=== PATIENT | male | born 1980 | race Caucasian/White ===

== ENCOUNTER 2018-03-03 13:42 | Inpatient (IN) | payer OTHER ==
[2018-03-03] MEDS: SOD CHLORIDE 0.9% 1,000 ML IV (14:08)
[2018-03-03] MEDS ORDERED: NACL 0.9% 3 ML SYG IV (14:30)
[2018-03-03] MEDS ORDERED: HYDROCODONE/APAP (5/325) TAB PO (14:30)
[2018-03-03] MEDS: CEFTRIAXONE 1 GM/50 ML (PMX) 50 ML IVPB (15:28)
[2018-03-03 15:31] LABS: ADD MAN DIFF? NO
[2018-03-03 15:34] LABS: BASOPHILS % 0.3 % (0.0-2.0); EOSINOPHILS % 0.3 % (0.0-7.0); HEMATOCRIT 30.6 % (42.0-52.0); HEMOGLOBIN 9.3 g/dl (14.0-18.0); LYMPHOCYTES % 11.5 % (15.0-51.0); MEAN CORPUSCULAR HEMOGLOBIN 24.4 pg (29.0-33.0); MEAN CORPUSCULAR HGB CONC 30.4 g/dl (32.0-37.0); MEAN CORPUSCULAR VOLUME 80.3 fl (82.0-101.0); MEAN PLATELET VOLUME 9.4 fl (7.4-10.4); MONOCYTE # 0.7 10^3/ul (0.3-0.9); MONOCYTES % 7.5 % (0.0-11.0); NEUTROPHIL # 7.1 10^3/ul (1.6-7.5); NEUTROPHILS % 79.8 % (39.0-77.0); PLATELET COUNT 309 10^3/UL (140-415); RED BLOOD COUNT 3.81 10^6/ul (4.70-6.10); RED CELL DISTRIBUTION WIDTH 15.8 % (11.5-14.5)
[2018-03-03 15:34] LABS: WHITE BLOOD COUNT 8.9 10^3/ul (4.8-10.8)
[2018-03-03 15:54] LABS: ANION GAP 9 (5-13); BLOOD UREA NITROGEN 26 mg/dl (7-20); CALCIUM 8.8 mg/dl (8.4-10.2); CARBON DIOXIDE 22 mmol/L (21-31); CHLORIDE 107 mmol/L (97-110); CREATININE 1.64 mg/dl (0.61-1.24); Estimated GFR 48 mL/min (>60); GLUCOSE 99 mg/dl (70-220); POTASSIUM 4.8 mmol/L (3.5-5.1); SODIUM 138 mmol/L (135-144)
[2018-03-03] MEDS: AMLODIPINE 10 MG TAB PO (16:13)
[2018-03-03 17:55] LABS: ADD UMIC YES; UR AMORPHOUS CRYSTAL MODERATE /HPF (NONE SEEN); UR ASCORBIC ACID NEGATIVE (NEGATIVE); UR BACTERIA FEW /HPF (NONE SEEN); UR BILIRUBIN (Dip) NEGATIVE (NEGATIVE); UR BLOOD (Dip) 2+ mg/dL (NEGATIVE); UR CLARITY TURBID (CLEAR); UR COLOR YELLOW (YELLOW); UR GLUCOSE (Dip) NEGATIVE (NEGATIVE); UR KETONES (Dip) NEGATIVE (NEGATIVE); UR LEUKOCYTE ESTERASE (Dip) NEGATIVE Leu/ul (NEGATIVE); UR MUCUS MODERATE /HPF (NONE SEEN); UR NITRITE (Dip) NEGATIVE (NEGATIVE); UR RBC 22 /HPF (0-5); UR SPECIFIC GRAVITY (Dip) 1.014 (1.003-1.030); UR SQUAMOUS EPITHELIAL CELL FEW /HPF (FEW); UR TOTAL PROTEIN (Dip) 2+ mg/dl (NEGATIVE); UR URIC ACID CRYSTAL MODERATE /HPF (NONE SEEN); UR UROBILINOGEN (Dip) NEGATIVE (NEGATIVE); UR WBC 8 /HPF (0-5)
[2018-03-03] MEDS: ONDANSETRON 4 MG INJ IV (21:46)
[2018-03-04] MEDS: SOD CHLORIDE 0.9% 1,000 ML IV ×3 (04:26→23:38)
[2018-03-04 05:09] LABS: ADD MAN DIFF? NO
[2018-03-04 05:21] LABS: WHITE BLOOD COUNT 11.1 10^3/ul (4.8-10.8)
[2018-03-04 05:21] LABS: BASOPHIL # 0.1 10^3/ul (0.0-0.1); BASOPHILS % 0.5 % (0.0-2.0); EOSINOPHILS # 0.1 10^3/ul (0.0-0.5); EOSINOPHILS % 0.5 % (0.0-7.0); HEMOGLOBIN 10.5 g/dl (14.0-18.0); LYMPHOCYTES # 1.6 10^3/ul (0.8-2.9); LYMPHOCYTES % 14.6 % (15.0-51.0); MEAN CORPUSCULAR VOLUME 80.1 fl (82.0-101.0); MEAN PLATELET VOLUME 9.5 fl (7.4-10.4); MONOCYTE # 0.8 10^3/ul (0.3-0.9); MONOCYTES % 6.9 % (0.0-11.0); NEUTROPHIL # 8.5 10^3/ul (1.6-7.5); NEUTROPHILS % 76.8 % (39.0-77.0); PLATELET COUNT 401 10^3/UL (140-415); RED BLOOD COUNT 4.37 10^6/ul (4.70-6.10); RED CELL DISTRIBUTION WIDTH 15.8 % (11.5-14.5)
[2018-03-04 05:27] LABS: HEMOGLOBIN A1C 5.7 % (0-5.9)
[2018-03-04 05:34] LABS: PHOSPHORUS 4.8 mg/dl (2.5-4.9)
[2018-03-04 05:34] LABS: MAGNESIUM 2.1 mg/dl (1.7-2.5)
[2018-03-04 05:40] LABS: ANION GAP 13 (5-13); BLOOD UREA NITROGEN 21 mg/dl (7-20); CARBON DIOXIDE 20 mmol/L (21-31); CHLORIDE 106 mmol/L (97-110); CREATININE 1.66 mg/dl (0.61-1.24); Estimated GFR 47 mL/min (>60); GLUCOSE 106 mg/dl (70-220); SODIUM 139 mmol/L (135-144)
[2018-03-04 05:42] LABS: POTASSIUM 4.3 mmol/L (3.5-5.1)
[2018-03-04] MEDS: PANTOPRAZOLE (EC) 40 MG TAB PO (06:15)
[2018-03-04] MEDS: AMLODIPINE 10 MG TAB PO (08:35)
[2018-03-04] MEDS: ACETAMINOPHEN 325 MG TAB PO (14:25)
[2018-03-04] MEDS: CEFTRIAXONE 1 GM/50 ML (PMX) 50 ML IVPB (14:25)
[2018-03-04] MEDS: ONDANSETRON 4 MG INJ IV (17:06)
[2018-03-05 05:20] LABS: ADD MAN DIFF? NO
[2018-03-05 05:30] LABS: BASOPHILS % 0.5 % (0.0-2.0); EOSINOPHILS % 0.5 % (0.0-7.0); HEMATOCRIT 30.5 % (42.0-52.0); HEMOGLOBIN 9.2 g/dl (14.0-18.0); LYMPHOCYTES % 13.1 % (15.0-51.0); MEAN CORPUSCULAR HEMOGLOBIN 24.1 pg (29.0-33.0); MEAN CORPUSCULAR HGB CONC 30.2 g/dl (32.0-37.0); MEAN CORPUSCULAR VOLUME 80.1 fl (82.0-101.0); MEAN PLATELET VOLUME 9.5 fl (7.4-10.4); MONOCYTE # 0.6 10^3/ul (0.3-0.9); MONOCYTES % 7.8 % (0.0-11.0); NEUTROPHIL # 6.2 10^3/ul (1.6-7.5); NEUTROPHILS % 77.6 % (39.0-77.0); PLATELET COUNT 324 10^3/UL (140-415); RED BLOOD COUNT 3.81 10^6/ul (4.70-6.10); RED CELL DISTRIBUTION WIDTH 15.8 % (11.5-14.5)
[2018-03-05 05:45] LABS: ANION GAP 7 (5-13); BLOOD UREA NITROGEN 17 mg/dl (7-20); CALCIUM 8.8 mg/dl (8.4-10.2); CARBON DIOXIDE 23 mmol/L (21-31); CHLORIDE 108 mmol/L (97-110); CREATININE 1.71 mg/dl (0.61-1.24); Estimated GFR 45 mL/min (>60); GLUCOSE 102 mg/dl (70-220); POTASSIUM 4.6 mmol/L (3.5-5.1); SODIUM 138 mmol/L (135-144)
[2018-03-05] MEDS: PANTOPRAZOLE (EC) 40 MG TAB PO (05:54)
[2018-03-05 05:58] LABS: MAGNESIUM 2.1 mg/dl (1.7-2.5)
[2018-03-05 05:58] LABS: PHOSPHORUS 4.6 mg/dl (2.5-4.9)
[2018-03-05] MEDS: AMLODIPINE 10 MG TAB PO (09:16)
[2018-03-05] MEDS: SOD CHLORIDE 0.9% 1,000 ML IV (14:03)
[2018-03-05] MEDS: CEFTRIAXONE 1 GM/50 ML (PMX) 50 ML IVPB (16:17)
[2018-03-06] MEDS: PANTOPRAZOLE (EC) 40 MG TAB PO (05:40)
[2018-03-06] MEDS: SOD CHLORIDE 0.9% 1,000 ML IV ×2 (05:43→15:36)
[2018-03-06] MEDS: ONDANSETRON 4 MG INJ IV (06:57)
[2018-03-06] MEDS: AMLODIPINE 10 MG TAB PO (08:28)
[2018-03-06] MEDS: CEFTRIAXONE 1 GM/50 ML (PMX) 50 ML IVPB (15:36)
[2018-03-07] MEDS: SOD CHLORIDE 0.9% 1,000 ML IV ×2 (03:56→09:34)
[2018-03-07 05:08] LABS: ADD MAN DIFF? NO
[2018-03-07 05:11] LABS: WHITE BLOOD COUNT 8.7 10^3/ul (4.8-10.8)
[2018-03-07 05:11] LABS: BASOPHIL # 0.1 10^3/ul (0.0-0.1); BASOPHILS % 0.8 % (0.0-2.0); EOSINOPHILS % 0.5 % (0.0-7.0); HEMATOCRIT 32.3 % (42.0-52.0); HEMOGLOBIN 9.7 g/dl (14.0-18.0); LYMPHOCYTES # 1.3 10^3/ul (0.8-2.9); LYMPHOCYTES % 14.8 % (15.0-51.0); MEAN CORPUSCULAR HEMOGLOBIN 24.2 pg (29.0-33.0); MEAN CORPUSCULAR VOLUME 80.5 fl (82.0-101.0); MEAN PLATELET VOLUME 9.1 fl (7.4-10.4); MONOCYTE # 0.7 10^3/ul (0.3-0.9); MONOCYTES % 7.4 % (0.0-11.0); NEUTROPHIL # 6.7 10^3/ul (1.6-7.5); PLATELET COUNT 362 10^3/UL (140-415); RED BLOOD COUNT 4.01 10^6/ul (4.70-6.10)
[2018-03-07] MEDS: PANTOPRAZOLE (EC) 40 MG TAB PO (05:18)
[2018-03-07 05:34] LABS: ANION GAP 15 (5-13); BLOOD UREA NITROGEN 15 mg/dl (7-20); CALCIUM 8.5 mg/dl (8.4-10.2); CARBON DIOXIDE 21 mmol/L (21-31); CHLORIDE 106 mmol/L (97-110); CREATININE 1.54 mg/dl (0.61-1.24); Estimated GFR 51 mL/min (>60); GLUCOSE 97 mg/dl (70-220); POTASSIUM 4.3 mmol/L (3.5-5.1); SODIUM 142 mmol/L (135-144)
[2018-03-07] MEDS: AMLODIPINE 10 MG TAB PO (09:30)
[2018-03-07] MEDS: CEFTRIAXONE 1 GM/50 ML (PMX) 50 ML IVPB (15:25)
== END 2018-03-07 17:30 | disposition home or self-care (01) | DRG 699 ==
LOC: MS1 13:42
DX: N28.9 Disorder of kidney and ureter, unspecified (principal); Z68.43 Body mass index [BMI] 50.0-59.9, adult; N12 Tubulo-interstitial nephritis, not specified as acute or chronic; I12.9 Hypertensive chronic kidney disease with stage 1 through stage 4 chronic kidney disease, or unspecified chronic kidney disease; N18.3 Chronic kidney disease, stage 3 (moderate); E66.01 Morbid (severe) obesity due to excess calories; N17.9 Acute kidney failure, unspecified
CPT/HCPCS: 76775; 80048; 81001; 83036; 83735; 84100; 85025; 87086

== ENCOUNTER 2018-07-22 07:33 | Inpatient (IN) | payer OTHER ==
[2018-07-22] MEDS: CEFAZOLIN 2 GM/50 ML (PMX) 50 ML IVPB (07:00)
[~2018-07-22 07:33] MED LIST: DESFLURANE 15 MIN
[2018-07-22] MEDS: LACTATED RINGER'S 1,000 ML IV (09:56)
[2018-07-22] MEDS ORDERED: ROCURONIUM 50 MG INJ ×6 (12:24→21:57)
[2018-07-22] MEDS ORDERED: PROPOFOL 20 ML (12:24)
[2018-07-22] MEDS ORDERED: SUCCINYLCHOLINE CHLORIDE 100 MG/5 ML SYG IV (12:24)
[2018-07-22] MEDS ORDERED: CEFAZOLIN 1 GM INJ ×5 (12:24→21:56)
[2018-07-22] MEDS ORDERED: MIDAZOLAM 1 MG/ML 2 ML INJ (12:25)
[2018-07-22] MEDS: BUPIVACAINE 0.5% (SDV) 30 ML INJ (16:03)
[2018-07-22] MEDS ORDERED: LABETALOL HCL 20MG INJ (16:52)
[2018-07-22] MEDS ORDERED: ONDANSETRON 4 MG INJ IV (17:00)
[2018-07-22] MEDS ORDERED: FENTAnyl 50 MCG/ML VIAL IV ×3 (17:00)
[2018-07-22] MEDS ORDERED: HYDROmorphONE 1 MG/5 ML IV SYRINGE IV (17:00)
[2018-07-22 17:36] LABS: HEMATOCRIT 31.8 % (42.0-52.0); HEMOGLOBIN 9.2 g/dl (14.0-18.0)
[2018-07-22 18:55] LABS: HEMATOCRIT 29.9 % (42.0-52.0); HEMOGLOBIN 8.9 g/dl (14.0-18.0)
[2018-07-22] MEDS ORDERED: CA CHLORIDE 10% 10 ML SYRINGE (20:11)
[2018-07-22 20:15] LABS: AADO2 Arterial 360.2 mmHg (7.0-24.0); Allen Test ACCEPTAB; Arterial Base Excess -2.8 mmol/L (-3.0-3); Arterial Blood Gas Oxygen Sat 99.2 mmHG (95.0-98.0); Arterial COHb 0.3 % (0.0-3.0); Arterial Fraction of Oxyhgb 98.5 % (93.0-99.0); Arterial HCO3 22.1 mmol/L (22.0-26.0); Arterial MetHb 0.4 % (0.0-1.5); MODE VENT - AC; Site Left Radial
[2018-07-22] MEDS ORDERED: ALBUMIN HUMAN 5% 500 ML (20:32)
[2018-07-22 20:52] LABS: IMMEDIATE SPIN CROSSMATCH 1 11
[2018-07-22] MEDS ORDERED: PROPOFOL 100 ML (22:50)
[2018-07-22] MEDS: PROPOFOL 100 ML IV (22:58)
[2018-07-22 23:47] LABS: WHITE BLOOD COUNT 19.5 10^3/ul (4.8-10.8)
[2018-07-22 23:47] LABS: ABNORMAL IP MESSAGE 1; HEMATOCRIT 27.1 % (42.0-52.0); HEMOGLOBIN 8.7 g/dl (14.0-18.0); MEAN CORPUSCULAR HEMOGLOBIN 27.3 pg (29.0-33.0); MEAN CORPUSCULAR HGB CONC 32.1 g/dl (32.0-37.0); MEAN PLATELET VOLUME 8.9 fl (7.4-10.4); PLATELET COUNT 326 10^3/UL (140-415); POSITIVE DIFF @See below; RED BLOOD COUNT 3.19 10^6/ul (4.70-6.10); RED CELL DISTRIBUTION WIDTH 18.1 % (11.5-14.5)
[2018-07-22 23:56] LABS: ADD MAN DIFF? YES
[2018-07-22] MEDS: FENTAnyl (DRIP) 1000 mcg/100mL 100 ML IV (23:58)
[2018-07-23 00:04] LABS: ALANINE AMINOTRANSFERASE 29 IU/L (13-69); ALBUMIN 1.9 g/dl (3.3-4.9); ALKALINE PHOSPHATASE 37 IU/L (42-121); ANION GAP 15 (5-13); ASPARTATE AMINO TRANSFERASE 40 IU/L (15-46); BILIRUBIN,INDIRECT 0.4 mg/dl (0-1.1); BILIRUBIN,TOTAL 1.1 mg/dl (0.2-1.3); BLOOD UREA NITROGEN 16 mg/dl (7-20); CALCIUM 6.7 mg/dl (8.4-10.2); CARBON DIOXIDE 15 mmol/L (21-31); CHLORIDE 102 mmol/L (97-110); CREATININE 1.31 mg/dl (0.61-1.24); Estimated GFR > 60 mL/min (>60); GLUCOSE 166 mg/dl (70-220); MAGNESIUM 1.4 mg/dl (1.7-2.5); POTASSIUM 5.4 mmol/L (3.5-5.1); SODIUM 132 mmol/L (135-144)
[2018-07-23] MEDS: SOD CHLORIDE 0.9% 1,000 ML IV ×3 (00:04→02:44)
[2018-07-23 00:08] LABS: INR 1.25; PARTIAL THROMBOPLASTIN TIME 32.8 Sec (23.0-35.0); PROTIME 15.8 Sec (11.9-14.9); PT RATIO 1.2
[2018-07-23] MEDS: MIDAZOLAM (DRIP) 50 mg/50 mL 50 ML IV ×4 (00:18→23:18)
[2018-07-23] MEDS: ALBUMIN HUMAN 25% 100 ML IV (00:23)
[2018-07-23] MEDS: NORepinephrine 8MG/250 ML (PMX 250 ML IV ×2 (00:58→18:00)
[2018-07-23 01:21] LABS: AADO2 Arterial 171.2 mmHg (7.0-24.0); Allen Test ACCEPTAB; Arterial Base Excess -7.1 mmol/L (-3.0-3); Arterial Blood Gas Oxygen Sat 98.8 mmHG (95.0-98.0); Arterial COHb 0.2 % (0.0-3.0); Arterial Fraction of Oxyhgb 98.2 % (93.0-99.0); Arterial HCO3 17.9 mmol/L (22.0-26.0); Arterial MetHb 0.4 % (0.0-1.5); Arterial pCO2 34.1 mmhg (35-45); MODE VENT - AC; Site Right Radial
[2018-07-23] MEDS: MAGNESIUM SULFATE 2 GM/50 ML 50 ML IVPB (01:41)
[2018-07-23 01:56] LABS: ANISOCYTOSIS 2+ (0-0); BAND NEUTROPHILS #M 4.4 10^3/ul (0.0-0.6); BAND NEUTROPHILS % (M) 23 % (0-4); LYMPHOCYTES #M 1.1 10^3/ul (0.8-2.9); LYMPHOCYTES % (M) 6 % (15-51); MICROCYTOSIS 2+ (0-0); MONOCYTE #M 0.1 10^3/ul (0.3-0.9); MONOCYTES % (M) 1 % (0-11); MYELOCYTES #M 0.1 10^3/ul (0.0-0.0); MYELOCYTES % (M) 1 % (0-0); PLATELET ESTIMATE NORMAL; POIKILOCYTOSIS 3+ (0-0); POLYCHROMASIA 3+ (0-0); SEG NEUT #M 14.3 10^3/ul (1.6-7.5); SEGMENTED NEUTROPHILS (M) % 69 % (39-77); SMUDGE%M 144 % (0-0)
[2018-07-23] MEDS: IPRATROPIUM (HFA) 12.9 GM INHALER INH ×3 (02:06→09:23)
[2018-07-23] MEDS ORDERED: DEXMEDETOMIDINE HCL 200 MCG in SOD CHLORIDE 0.9% 48 ML IV (02:30)
[2018-07-23] MEDS: CEFAZOLIN 2 GM/50 ML (PMX) 50 ML IVPB (02:44)
[2018-07-23] MEDS: PROPOFOL 100 ML IV ×4 (03:39→20:45)
[2018-07-23 05:25] LABS: ADD MAN DIFF? NO
[2018-07-23 05:32] LABS: BASOPHILS % 0.3 % (0.0-2.0); HEMATOCRIT 27.6 % (42.0-52.0); HEMOGLOBIN 8.8 g/dl (14.0-18.0); LYMPHOCYTES # 0.8 10^3/ul (0.8-2.9); LYMPHOCYTES % 6.5 % (15.0-51.0); MEAN CORPUSCULAR HEMOGLOBIN 25.4 pg (29.0-33.0); MEAN CORPUSCULAR HGB CONC 31.9 g/dl (32.0-37.0); MEAN CORPUSCULAR VOLUME 79.8 fl (82.0-101.0); MONOCYTE # 1.3 10^3/ul (0.3-0.9); MONOCYTES % 9.9 % (0.0-11.0); NEUTROPHIL # 10.7 10^3/ul (1.6-7.5); NEUTROPHILS % 82.5 % (39.0-77.0); PLATELET COUNT 274 10^3/UL (140-415); RED BLOOD COUNT 3.46 10^6/ul (4.70-6.10); RED CELL DISTRIBUTION WIDTH 17.7 % (11.5-14.5)
[2018-07-23 05:32] LABS: WHITE BLOOD COUNT 12.9 10^3/ul (4.8-10.8)
[2018-07-23 05:48] LABS: HEMOGLOBIN A1C 5.7 % (0-5.9)
[2018-07-23] MEDS: PANTOPRAZOLE 40 MG INJ IV (05:50)
[2018-07-23 05:51] LABS: ALANINE AMINOTRANSFERASE 91 IU/L (13-69); ALBUMIN 2.8 g/dl (3.3-4.9); ALBUMIN/GLOBULIN RATIO 1.03; ALKALINE PHOSPHATASE 60 IU/L (42-121); ANION GAP 8 (5-13); ASPARTATE AMINO TRANSFERASE 486 IU/L (15-46); BILIRUBIN,INDIRECT 0.5 mg/dl (0-1.1); BILIRUBIN,TOTAL 0.7 mg/dl (0.2-1.3); BLOOD UREA NITROGEN 25 mg/dl (7-20); CALCIUM 6.8 mg/dl (8.4-10.2); CARBON DIOXIDE 20 mmol/L (21-31); CHLORIDE 111 mmol/L (97-110); CHOL/HDL RATIO 5.6 RATIO; CHOLESTEROL 79 mg/dl (100-200); Estimated GFR 38 mL/min (>60); GLUCOSE 171 mg/dl (70-220); HDL CHOLESTEROL 14 mg/dl (28-63); LDL CHOLESTEROL,CALCULATED 22 mg/dl; MAGNESIUM 2.1 mg/dl (1.7-2.5); SODIUM 139 mmol/L (135-144); TOTAL PROTEIN 5.5 g/dl (6.1-8.1); TRIGLYCERIDES 214 mg/dl (0-149)
[2018-07-23 05:59] LABS: POTASSIUM 6.7 mmol/L (3.5-5.1)
[2018-07-23] MEDS ORDERED: ALBUTEROL 0.083% (NEB) 2.5 MG/3 ML AMP HHN (06:30)
[2018-07-23] MEDS: FENTAnyl (DRIP) 1000 mcg/100mL 100 ML IV (06:41)
[2018-07-23] MEDS: DEXTROSE 50% 50 ML SYRINGE IV ×2 (07:00→15:30)
[2018-07-23] MEDS: INSULIN REGULAR, HUMAN 100 UNIT/1 ML 3ML VIAL IVP ×2 (07:03→15:20)
[2018-07-23] MEDS: AMLODIPINE 10 MG TAB PO (09:00)
[2018-07-23 09:49] LABS: ANION GAP 9 (5-13); BLOOD UREA NITROGEN 29 mg/dl (7-20); CARBON DIOXIDE 19 mmol/L (21-31); CHLORIDE 109 mmol/L (97-110); CREATININE 2.44 mg/dl (0.61-1.24); Estimated GFR 30 mL/min (>60); GLUCOSE 178 mg/dl (70-220); SODIUM 137 mmol/L (135-144)
[2018-07-23 10:01] LABS: POTASSIUM 7.2 mmol/L (3.5-5.1)
[2018-07-23] MEDS ORDERED: NA POLYST SULFON 15 GM/60 ML BTL (10:37)
[2018-07-23 10:40] LABS: ANION GAP 8 (5-13); BLOOD UREA NITROGEN 29 mg/dl (7-20); CALCIUM 6.9 mg/dl (8.4-10.2); CARBON DIOXIDE 20 mmol/L (21-31); CHLORIDE 109 mmol/L (97-110); CREATININE 2.57 mg/dl (0.61-1.24); Estimated GFR 28 mL/min (>60); GLUCOSE 170 mg/dl (70-220); SODIUM 137 mmol/L (135-144)
[2018-07-23 10:45] LABS: POTASSIUM 7.1 mmol/L (3.5-5.1)
[2018-07-23] MEDS: NA POLYST SULFON 15 GM/60 ML BTL NGT (11:11)
[2018-07-23] MEDS ORDERED: IPRATROPIUM (HFA) 12.9 GM INHALER INH (12:00)
[2018-07-23 12:35] LABS: ANION GAP 10 (5-13)
[2018-07-23 12:59] LABS: BLOOD UREA NITROGEN 31 mg/dl (7-20); CALCIUM 7.2 mg/dl (8.4-10.2); CARBON DIOXIDE 18 mmol/L (21-31); CHLORIDE 109 mmol/L (97-110); CREATININE 2.78 mg/dl (0.61-1.24); Estimated GFR 26 mL/min (>60); GLUCOSE 172 mg/dl (70-220); SODIUM 137 mmol/L (135-144)
[2018-07-23 13:00] LABS: POTASSIUM 7.4 mmol/L (3.5-5.1)
[2018-07-23 13:25] LABS: UR CLARITY BLOODY (CLEAR); UR COLOR RED (YELLOW)
[2018-07-23 13:26] LABS: UR BILIRUBIN (Dip) NEGATIVE (NEGATIVE); UR GLUCOSE (Dip) NEGATIVE (NEGATIVE); UR KETONES (Dip) NEGATIVE (NEGATIVE); UR TOTAL PROTEIN (Dip) 2+ mg/dl (NEGATIVE); URINE SPECIFIC GRAVITY (Dip) 1.003 (1.003-1.030)
[2018-07-23 13:27] LABS: ADD UMIC YES; UR BLOOD (Dip) 3+ mg/dL (NEGATIVE); UR LEUKOCYTE ESTERASE (Dip) NEGATIVE Leu/ul (NEGATIVE); UR NITRITE (Dip) NEGATIVE (NEGATIVE); UR UROBILINOGEN (Dip) NEGATIVE (NEGATIVE)
[2018-07-23 13:28] LABS: URINE RBCS >200 /HPF (0)
[2018-07-23 13:29] LABS: UR BACTERIA FEW /HPF (NONE SEEN)
[2018-07-23 13:59] LABS: SODIUM,URINE RANDOM 38 mmol/L (30-90)
[2018-07-23 13:59] LABS: CREATININE,URINE RANDOM 53.29 mg/dl (20-370)
[2018-07-23] MEDS ORDERED: DEXTROSE 50% 50 ML SYRINGE IV (15:00)
[2018-07-23] MEDS: SODIUM POLYSTYRENE 15 GM KIT (POWDER + SORBITOL) NGT (15:12)
[2018-07-23 16:33] LABS: ANION GAP 8 (5-13); BLOOD UREA NITROGEN 34 mg/dl (7-20); CALCIUM 7.2 mg/dl (8.4-10.2); CARBON DIOXIDE 19 mmol/L (21-31); CHLORIDE 110 mmol/L (97-110); CREATININE 3.13 mg/dl (0.61-1.24); Estimated GFR 23 mL/min (>60); GLUCOSE 157 mg/dl (70-220); SODIUM 137 mmol/L (135-144)
[2018-07-23 16:52] LABS: POTASSIUM 7.1 mmol/L (3.5-5.1)
[2018-07-23] MEDS ORDERED: LIDOCAINE 1% (MDV) 20 ML INJ (17:09)
[2018-07-23] MEDS ORDERED: SOD CHLORIDE 0.9% 500 ML (17:10)
[2018-07-23] MEDS ORDERED: HEPARIN 1000 UNITS/ML 10 ML INJ (17:10)
[2018-07-23 18:44] LABS: HEPATITIS B SURFACE ANTIGEN NEGATIVE (NEGATIVE)
[2018-07-23 19:02] LABS: HEPATITIS B SURFACE ANTIBODY NEGATIVE (NEGATIVE)
[2018-07-23] MEDS: FAMOTIDINE 20 MG INJ IV (21:00)
[2018-07-23] MEDS: HEPARIN 1000 UNITS/ML 10 ML INJ CATHETER (22:00)
[2018-07-23 22:41] LABS: ANION GAP 9 (5-13); BLOOD UREA NITROGEN 21 mg/dl (7-20); CALCIUM 7.5 mg/dl (8.4-10.2); CARBON DIOXIDE 25 mmol/L (21-31); CHLORIDE 101 mmol/L (97-110); Estimated GFR 32 mL/min (>60); GLUCOSE 155 mg/dl (70-220); POTASSIUM 4.5 mmol/L (3.5-5.1); SODIUM 135 mmol/L (135-144)
[2018-07-23] MEDS: PHENYLephrine 20MG IN 250 ML 250 ML IV (23:08)
[2018-07-24] MEDS: ACETAMINOPHEN 650MG/20.3ML CUP NGT (00:13)
[2018-07-24] MEDS ORDERED: VANCOMYCIN IV PER PHARMACY XX (03:30)
[2018-07-24 03:49] LABS: LACTIC ACID 1.5 mmol/L (0.5-2.0)
[2018-07-24] MEDS: VANCOMYCIN HCL 2 GM in SOD CHLORIDE 0.9% 500 ML IVPB (03:59)
[2018-07-24] MEDS: FENTAnyl (DRIP) 1000 mcg/100mL 100 ML IV (04:54)
[2018-07-24] MEDS: PROPOFOL 100 ML IV (04:55)
[2018-07-24 04:59] LABS: ADD MAN DIFF? NO
[2018-07-24 05:03] LABS: BASOPHIL # 0.1 10^3/ul (0.0-0.1); BASOPHILS % 0.3 % (0.0-2.0); EOSINOPHILS % 0.1 % (0.0-7.0); HEMATOCRIT 26.4 % (42.0-52.0); HEMOGLOBIN 8.3 g/dl (14.0-18.0); LYMPHOCYTES # 1.2 10^3/ul (0.8-2.9); LYMPHOCYTES % 7.5 % (15.0-51.0); MEAN CORPUSCULAR HEMOGLOBIN 25.1 pg (29.0-33.0); MEAN CORPUSCULAR HGB CONC 31.4 g/dl (32.0-37.0); MEAN CORPUSCULAR VOLUME 79.8 fl (82.0-101.0); MEAN PLATELET VOLUME 9.2 fl (7.4-10.4); MONOCYTE # 1.2 10^3/ul (0.3-0.9); MONOCYTES % 7.5 % (0.0-11.0); NEUTROPHIL # 13.5 10^3/ul (1.6-7.5); NEUTROPHILS % 83.9 % (39.0-77.0); PLATELET COUNT 286 10^3/UL (140-415); RED BLOOD COUNT 3.31 10^6/ul (4.70-6.10); RED CELL DISTRIBUTION WIDTH 18.9 % (11.5-14.5)
[2018-07-24 05:03] LABS: WHITE BLOOD COUNT 16.1 10^3/ul (4.8-10.8)
[2018-07-24 05:24] LABS: ANION GAP 9 (5-13); BLOOD UREA NITROGEN 26 mg/dl (7-20); CALCIUM 7.5 mg/dl (8.4-10.2); CARBON DIOXIDE 25 mmol/L (21-31); CHLORIDE 103 mmol/L (97-110); CREATININE 3.07 mg/dl (0.61-1.24); Estimated GFR 23 mL/min (>60); GLUCOSE 153 mg/dl (70-220); MAGNESIUM 2.2 mg/dl (1.7-2.5); PHOSPHORUS 7.9 mg/dl (2.5-4.9); POTASSIUM 4.6 mmol/L (3.5-5.1); SODIUM 137 mmol/L (135-144)
[2018-07-24 05:32] LABS: ALANINE AMINOTRANSFERASE 138 IU/L (13-69); ALBUMIN 2.7 g/dl (3.3-4.9); ALBUMIN/GLOBULIN RATIO 1.03; ALKALINE PHOSPHATASE 81 IU/L (42-121); ANION GAP 12 (5-13); BILIRUBIN,INDIRECT 0.4 mg/dl (0-1.1); BILIRUBIN,TOTAL 0.4 mg/dl (0.2-1.3); BLOOD UREA NITROGEN 25 mg/dl (7-20); CALCIUM 7.3 mg/dl (8.4-10.2); CARBON DIOXIDE 23 mmol/L (21-31); CHLORIDE 104 mmol/L (97-110); CREATININE 2.83 mg/dl (0.61-1.24); Estimated GFR 25 mL/min (>60); GLUCOSE 147 mg/dl (70-220); POTASSIUM 4.8 mmol/L (3.5-5.1); SODIUM 139 mmol/L (135-144); TOTAL PROTEIN 5.3 g/dl (6.1-8.1)
[2018-07-24 05:54] LABS: ASPARTATE AMINO TRANSFERASE 1046 IU/L (15-46)
[2018-07-24] MEDS: MIDAZOLAM (DRIP) 50 mg/50 mL 50 ML IV (06:35)
[2018-07-24 07:11] LABS: AADO2 Arterial 153.5 mmHg (7.0-24.0); Allen Test ACCEPTAB; Arterial Blood Gas Oxygen Sat 96.5 mmHG (95.0-98.0); Arterial COHb 0.3 % (0.0-3.0); Arterial Fraction of Oxyhgb 95.8 % (93.0-99.0); Arterial HCO3 22.5 mmol/L (22.0-26.0); Arterial MetHb 0.4 % (0.0-1.5); Arterial pCO2 32.8 mmhg (35-45); MODE VENT - AC; Site Right Radial
[2018-07-24] MEDS: AMLODIPINE 10 MG TAB PO (09:00)
[2018-07-24] MEDS: PIPER-TAZO 2.25 GM (PMX) 50 ML IVPB ×2 (09:07→21:22)
[2018-07-24] MEDS: FAMOTIDINE 20 MG INJ IV (09:07)
[2018-07-24] MEDS: morphine 2 MG INJ IV ×3 (09:19→22:36)
[2018-07-24] MEDS: ACETAMINOPHEN 650 MG SUPP PR (13:06)
[2018-07-24] MEDS: LORAZEPAM 2 MG INJ IV (15:04)
[2018-07-24] MEDS ORDERED: ALBUMIN HUMAN 25% 100 ML (15:26)
[2018-07-24] MEDS: ALBUMIN HUMAN 25% 100 ML IV (15:31)
[2018-07-24 16:31] LABS: CREATININE, RANDOM URINE 56 mg/dL (20-320); MICROALBUMIN 374.8 mg/dL; MICROALBUMIN/CREATININE RATIO 6693 (<30)
[2018-07-24] MEDS: PHENYLephrine 20MG IN 250 ML 250 ML IV ×2 (16:43→21:45)
[2018-07-24] MEDS: HEPARIN 1000 UNITS/ML 10 ML INJ CATHETER (17:32)
[2018-07-24 20:50] LABS: AADO2 Arterial 165.9 mmHg (7.0-24.0); Allen Test ACCEPTAB; Arterial Base Excess -0.6 mmol/L (-3.0-3); Arterial Blood Gas Oxygen Sat 94.5 mmHG (95.0-98.0); Arterial COHb 0.2 % (0.0-3.0); Arterial Fraction of Oxyhgb 93.9 % (93.0-99.0); Arterial HCO3 22.9 mmol/L (22.0-26.0); Arterial MetHb 0.4 % (0.0-1.5); Arterial pCO2 32.9 mmhg (35-45); MODE NASAL CANNULA; Site Right Radial
[2018-07-24] MEDS: MUPIROCIN 2% 22 GM OINT TOP (21:22)
[2018-07-25] MEDS: PHENYLephrine 20MG IN 250 ML 250 ML IV (00:39)
[2018-07-25] MEDS: PROPOFOL 100 ML IV (05:00)
[2018-07-25 05:10] LABS: ADD MAN DIFF? NO
[2018-07-25 05:20] LABS: ABNORMAL IP MESSAGE 1; BASOPHILS % 0.3 % (0.0-2.0); EOSINOPHILS % 0.3 % (0.0-7.0); HEMATOCRIT 21.7 % (42.0-52.0); LYMPHOCYTES # 1.2 10^3/ul (0.8-2.9); LYMPHOCYTES % 7.7 % (15.0-51.0); MEAN CORPUSCULAR HEMOGLOBIN 25.1 pg (29.0-33.0); MEAN CORPUSCULAR HGB CONC 30.9 g/dl (32.0-37.0); MEAN CORPUSCULAR VOLUME 81.3 fl (82.0-101.0); MEAN PLATELET VOLUME 9.1 fl (7.4-10.4); MONOCYTE # 1.2 10^3/ul (0.3-0.9); MONOCYTES % 7.3 % (0.0-11.0); NEUTROPHIL # 13.4 10^3/ul (1.6-7.5); NEUTROPHILS % 83.6 % (39.0-77.0); PLATELET COUNT 306 10^3/UL (140-415); POSITIVE DIFF @See below; RED BLOOD COUNT 2.67 10^6/ul (4.70-6.10); RED CELL DISTRIBUTION WIDTH 19.4 % (11.5-14.5)
[2018-07-25 05:41] LABS: HEMOGLOBIN 6.7 g/dl (14.0-18.0)
[2018-07-25 05:43] LABS: MAGNESIUM 2.4 mg/dl (1.7-2.5)
[2018-07-25 05:43] LABS: PHOSPHORUS 7.4 mg/dl (2.5-4.9)
[2018-07-25 05:45] LABS: ALANINE AMINOTRANSFERASE 84 IU/L (13-69); ALBUMIN 2.6 g/dl (3.3-4.9); ALBUMIN/GLOBULIN RATIO 1.08; ALKALINE PHOSPHATASE 75 IU/L (42-121); ANION GAP 9 (5-13); BILIRUBIN,INDIRECT 0.4 mg/dl (0-1.1); BILIRUBIN,TOTAL 0.4 mg/dl (0.2-1.3); BLOOD UREA NITROGEN 36 mg/dl (7-20); CALCIUM 7.2 mg/dl (8.4-10.2); CARBON DIOXIDE 25 mmol/L (21-31); CHLORIDE 106 mmol/L (97-110); Estimated GFR 17 mL/min (>60); GLUCOSE 105 mg/dl (70-220); POTASSIUM 4.4 mmol/L (3.5-5.1); SODIUM 140 mmol/L (135-144)
[2018-07-25 06:23] LABS: ASPARTATE AMINO TRANSFERASE 837 IU/L (15-46)
[2018-07-25] MEDS: AMLODIPINE 10 MG TAB PO (09:00)
[2018-07-25] MEDS: PIPER-TAZO 2.25 GM (PMX) 50 ML IVPB ×3 (09:00→20:34)
[2018-07-25] MEDS: MUPIROCIN 2% 22 GM OINT TOP ×2 (09:09→20:33)
[2018-07-25] MEDS: SOD CHLORIDE 0.9% 250 ML IV* (10:00)
[2018-07-25 10:47] LABS: IMMEDIATE SPIN CROSSMATCH 1
[2018-07-25] MEDS: HEPARIN 1000 UNITS/ML 10 ML INJ CATHETER (12:43)
[2018-07-25 14:08] LABS: HEMATOCRIT 25.6 % (42.0-52.0)
[2018-07-25] MEDS: morphine 2 MG INJ IV (18:28)
[2018-07-26] MEDS: morphine 2 MG INJ IV ×3 (03:32→20:45)
[2018-07-26 05:27] LABS: ADD MAN DIFF? NO
[2018-07-26 05:29] LABS: WHITE BLOOD COUNT 14.8 10^3/ul (4.8-10.8)
[2018-07-26 05:29] LABS: BASOPHILS % 0.3 % (0.0-2.0); EOSINOPHILS # 0.1 10^3/ul (0.0-0.5); EOSINOPHILS % 0.5 % (0.0-7.0); HEMATOCRIT 25.9 % (42.0-52.0); HEMOGLOBIN 8.2 g/dl (14.0-18.0); LYMPHOCYTES # 1.1 10^3/ul (0.8-2.9); LYMPHOCYTES % 7.3 % (15.0-51.0); MEAN CORPUSCULAR HGB CONC 31.7 g/dl (32.0-37.0); MEAN CORPUSCULAR VOLUME 82.2 fl (82.0-101.0); MEAN PLATELET VOLUME 8.9 fl (7.4-10.4); MONOCYTES % 6.5 % (0.0-11.0); NEUTROPHIL # 12.5 10^3/ul (1.6-7.5); NEUTROPHILS % 84.5 % (39.0-77.0); PLATELET COUNT 316 10^3/UL (140-415); RED BLOOD COUNT 3.15 10^6/ul (4.70-6.10); RED CELL DISTRIBUTION WIDTH 18.6 % (11.5-14.5)
[2018-07-26 05:44] LABS: Allen Test ACCEPTAB; Arterial Base Excess -0.7 mmol/L (-3.0-3); Arterial Blood Gas Oxygen Sat 97.6 mmHG (95.0-98.0); Arterial COHb 0.3 % (0.0-3.0); Arterial Fraction of Oxyhgb 97.1 % (93.0-99.0); Arterial HCO3 23.4 mmol/L (22.0-26.0); Arterial MetHb 0.2 % (0.0-1.5); Arterial pCO2 36.1 mmhg (35-45); MODE NASAL CANNULA; Site Left Radial
[2018-07-26 06:07] LABS: ALANINE AMINOTRANSFERASE 55 IU/L (13-69); ALBUMIN 3.1 g/dl (3.3-4.9); ALKALINE PHOSPHATASE 87 IU/L (42-121); ANION GAP 12 (5-13); ASPARTATE AMINO TRANSFERASE 695 IU/L (15-46); BILIRUBIN,INDIRECT 0.4 mg/dl (0-1.1); BILIRUBIN,TOTAL 0.4 mg/dl (0.2-1.3); BLOOD UREA NITROGEN 42 mg/dl (7-20); CALCIUM 7.7 mg/dl (8.4-10.2); CARBON DIOXIDE 25 mmol/L (21-31); CHLORIDE 102 mmol/L (97-110); CREATININE 4.65 mg/dl (0.61-1.24); Estimated GFR 14 mL/min (>60); GLUCOSE 89 mg/dl (70-220); SODIUM 139 mmol/L (135-144); TOTAL PROTEIN 6.2 g/dl (6.1-8.1)
[2018-07-26 06:13] LABS: ANION GAP 11 (5-13); BLOOD UREA NITROGEN 43 mg/dl (7-20); CALCIUM 7.7 mg/dl (8.4-10.2); CARBON DIOXIDE 26 mmol/L (21-31); CHLORIDE 102 mmol/L (97-110); CREATININE 4.69 mg/dl (0.61-1.24); Estimated GFR 14 mL/min (>60); GLUCOSE 89 mg/dl (70-220); MAGNESIUM 2.6 mg/dl (1.7-2.5); PHOSPHORUS 7.2 mg/dl (2.5-4.9); SODIUM 139 mmol/L (135-144)
[2018-07-26] MEDS: AMLODIPINE 10 MG TAB PO (09:00)
[2018-07-26] MEDS: PIPER-TAZO 2.25 GM (PMX) 50 ML IVPB ×2 (09:19→21:10)
[2018-07-26] MEDS: MUPIROCIN 2% 22 GM OINT TOP ×2 (09:20→23:00)
[2018-07-26] MEDS: VANCOMYCIN HCL 1.5 GM in SOD CHLORIDE 0.9% 250 ML IVPB (12:45)
[2018-07-26] MEDS: ALBUMIN HUMAN 25% 100 ML IV (18:31)
[2018-07-26] MEDS: HEPARIN 1000 UNITS/ML 10 ML INJ CATHETER (19:26)
[2018-07-27] MEDS: morphine 2 MG INJ IV (01:57)
[2018-07-27] MEDS: ONDANSETRON 4 MG INJ IV (03:45)
[2018-07-27 05:46] LABS: ADD MAN DIFF? NO
[2018-07-27 06:11] LABS: BASOPHIL # 0.1 10^3/ul (0.0-0.1); BASOPHILS % 0.4 % (0.0-2.0); EOSINOPHILS # 0.1 10^3/ul (0.0-0.5); EOSINOPHILS % 0.3 % (0.0-7.0); HEMOGLOBIN 8.5 g/dl (14.0-18.0); LYMPHOCYTES % 6.4 % (15.0-51.0); MEAN CORPUSCULAR HEMOGLOBIN 25.7 pg (29.0-33.0); MEAN CORPUSCULAR HGB CONC 31.5 g/dl (32.0-37.0); MEAN CORPUSCULAR VOLUME 81.6 fl (82.0-101.0); MEAN PLATELET VOLUME 8.8 fl (7.4-10.4); MONOCYTE # 1.2 10^3/ul (0.3-0.9); MONOCYTES % 7.5 % (0.0-11.0); NEUTROPHILS % 84.4 % (39.0-77.0); PLATELET COUNT 387 10^3/UL (140-415); RED BLOOD COUNT 3.31 10^6/ul (4.70-6.10); RED CELL DISTRIBUTION WIDTH 18.6 % (11.5-14.5)
[2018-07-27 06:11] LABS: WHITE BLOOD COUNT 15.4 10^3/ul (4.8-10.8)
[2018-07-27 06:46] LABS: ANION GAP 15 (5-13); BLOOD UREA NITROGEN 64 mg/dl (7-20); CALCIUM 7.8 mg/dl (8.4-10.2); CARBON DIOXIDE 24 mmol/L (21-31); CHLORIDE 101 mmol/L (97-110); CREATININE 6.23 mg/dl (0.61-1.24); Estimated GFR 10 mL/min (>60); GLUCOSE 96 mg/dl (70-220); MAGNESIUM 2.8 mg/dl (1.7-2.5); PHOSPHORUS 9.5 mg/dl (2.5-4.9); POTASSIUM 4.3 mmol/L (3.5-5.1); SODIUM 140 mmol/L (135-144)
[2018-07-27] MEDS: THERAWORKS TOP ×2 (08:01→14:27)
[2018-07-27] MEDS: AMLODIPINE 10 MG TAB PO (09:00)
[2018-07-27] MEDS: MUPIROCIN 2% 22 GM OINT TOP ×2 (09:28→21:29)
[2018-07-27] MEDS: HEPARIN 1000 UNITS/ML 10 ML INJ CATHETER (11:55)
[2018-07-27] MEDS: SEVELAMER CARBONATE 800 MG TABLET PO ×2 (12:24→18:28)
[2018-07-27] MEDS: PIPER-TAZO 2.25 GM (PMX) 50 ML IVPB (12:24)
[2018-07-27] MEDS: ACETAMINOPHEN 650MG/20.3ML CUP NGT ×2 (14:27→21:40)
[2018-07-28] MEDS: ONDANSETRON 4 MG INJ IV (00:26)
[2018-07-28 05:56] LABS: ADD MAN DIFF? NO
[2018-07-28 06:01] LABS: WHITE BLOOD COUNT 12.7 10^3/ul (4.8-10.8)
[2018-07-28 06:01] LABS: BASOPHIL # 0.1 10^3/ul (0.0-0.1); BASOPHILS % 0.5 % (0.0-2.0); EOSINOPHILS # 0.1 10^3/ul (0.0-0.5); EOSINOPHILS % 0.9 % (0.0-7.0); HEMATOCRIT 27.9 % (42.0-52.0); HEMOGLOBIN 8.8 g/dl (14.0-18.0); LYMPHOCYTES # 1.1 10^3/ul (0.8-2.9); MEAN CORPUSCULAR HEMOGLOBIN 25.6 pg (29.0-33.0); MEAN CORPUSCULAR HGB CONC 31.5 g/dl (32.0-37.0); MEAN CORPUSCULAR VOLUME 81.1 fl (82.0-101.0); MEAN PLATELET VOLUME 8.7 fl (7.4-10.4); MONOCYTE # 1.1 10^3/ul (0.3-0.9); MONOCYTES % 8.7 % (0.0-11.0); NEUTROPHIL # 10.1 10^3/ul (1.6-7.5); NEUTROPHILS % 79.7 % (39.0-77.0); PLATELET COUNT 382 10^3/UL (140-415); RED BLOOD COUNT 3.44 10^6/ul (4.70-6.10); RED CELL DISTRIBUTION WIDTH 18.5 % (11.5-14.5)
[2018-07-28 06:45] LABS: ANION GAP 13 (5-13); BLOOD UREA NITROGEN 60 mg/dl (7-20); CARBON DIOXIDE 25 mmol/L (21-31); CHLORIDE 98 mmol/L (97-110); CREATININE 5.78 mg/dl (0.61-1.24); Estimated GFR 11 mL/min (>60); GLUCOSE 95 mg/dl (70-220); MAGNESIUM 2.4 mg/dl (1.7-2.5); PHOSPHORUS 7.6 mg/dl (2.5-4.9); POTASSIUM 3.9 mmol/L (3.5-5.1); SODIUM 136 mmol/L (135-144)
[2018-07-28] MEDS: AMLODIPINE 10 MG TAB PO (09:29)
[2018-07-28] MEDS: SEVELAMER CARBONATE 800 MG TABLET PO ×3 (09:29→18:00)
[2018-07-28] MEDS: morphine 2 MG INJ IV ×2 (09:30→17:03)
[2018-07-28] MEDS: MUPIROCIN 2% 22 GM OINT TOP ×2 (09:32→21:39)
[2018-07-28] MEDS ORDERED: traMADol 50 MG TAB (16:45)
[2018-07-28] MEDS: BALSAM PERU/CASTOR OIL 60 GM TUBE TOP (21:00)
[2018-07-28] MEDS: ACETAMINOPHEN 650MG/20.3ML CUP NGT (21:40)
[2018-07-29] MEDS: ACETAMINOPHEN 650MG/20.3ML CUP NGT ×3 (03:38→22:15)
[2018-07-29 06:04] LABS: ADD MAN DIFF? NO
[2018-07-29 06:08] LABS: WHITE BLOOD COUNT 13.1 10^3/ul (4.8-10.8)
[2018-07-29 06:08] LABS: BASOPHIL # 0.1 10^3/ul (0.0-0.1); BASOPHILS % 0.6 % (0.0-2.0); EOSINOPHILS # 0.2 10^3/ul (0.0-0.5); EOSINOPHILS % 1.4 % (0.0-7.0); HEMATOCRIT 26.6 % (42.0-52.0); HEMOGLOBIN 8.6 g/dl (14.0-18.0); LYMPHOCYTES # 1.1 10^3/ul (0.8-2.9); LYMPHOCYTES % 8.6 % (15.0-51.0); MEAN CORPUSCULAR HGB CONC 32.3 g/dl (32.0-37.0); MEAN CORPUSCULAR VOLUME 80.4 fl (82.0-101.0); MEAN PLATELET VOLUME 8.7 fl (7.4-10.4); MONOCYTES % 7.5 % (0.0-11.0); NEUTROPHIL # 10.5 10^3/ul (1.6-7.5); NEUTROPHILS % 80.1 % (39.0-77.0); PLATELET COUNT 390 10^3/UL (140-415); RED BLOOD COUNT 3.31 10^6/ul (4.70-6.10); RED CELL DISTRIBUTION WIDTH 18.1 % (11.5-14.5)
[2018-07-29 06:32] LABS: ANION GAP 17 (5-13); BLOOD UREA NITROGEN 73 mg/dl (7-20); CARBON DIOXIDE 23 mmol/L (21-31); CHLORIDE 94 mmol/L (97-110); CREATININE 7.17 mg/dl (0.61-1.24); Estimated GFR 9 mL/min (>60); GLUCOSE 93 mg/dl (70-220); MAGNESIUM 2.5 mg/dl (1.7-2.5); POTASSIUM 3.7 mmol/L (3.5-5.1); SODIUM 134 mmol/L (135-144)
[2018-07-29] MEDS: morphine 2 MG INJ IV (06:32)
[2018-07-29] MEDS: SEVELAMER CARBONATE 800 MG TABLET PO ×3 (08:25→16:43)
[2018-07-29] MEDS: BALSAM PERU/CASTOR OIL 60 GM TUBE TOP ×2 (08:28→20:14)
[2018-07-29] MEDS: MUPIROCIN 2% 22 GM OINT TOP (08:28)
[2018-07-29] MEDS: AMLODIPINE 10 MG TAB PO (08:28)
[2018-07-29 10:20] LABS: FOLATE 4.2 ng/ml (2.8-20.0)
[2018-07-29] MEDS: HEPARIN 1000 UNITS/ML 10 ML INJ CATHETER (19:28)
[2018-07-30 07:25] LABS: ANION GAP 14 (5-13); BLOOD UREA NITROGEN 51 mg/dl (7-20); CARBON DIOXIDE 24 mmol/L (21-31); CHLORIDE 95 mmol/L (97-110); Estimated GFR 11 mL/min (>60); GLUCOSE 94 mg/dl (70-220); MAGNESIUM 2.3 mg/dl (1.7-2.5); PHOSPHORUS 6.6 mg/dl (2.5-4.9); SODIUM 133 mmol/L (135-144)
[2018-07-30] MEDS: BALSAM PERU/CASTOR OIL 60 GM TUBE TOP ×2 (08:51→20:27)
[2018-07-30] MEDS: SEVELAMER CARBONATE 800 MG TABLET PO ×3 (08:51→17:58)
[2018-07-30] MEDS: AMLODIPINE 10 MG TAB PO (08:52)
[2018-07-30] MEDS: ACETAMINOPHEN 650MG/20.3ML CUP NGT (20:27)
[2018-07-30] MEDS: GABAPENTIN 100 MG CAP PO (20:27)
[2018-07-31 06:50] LABS: ADD MAN DIFF? NO
[2018-07-31 06:52] LABS: WHITE BLOOD COUNT 12.7 10^3/ul (4.8-10.8)
[2018-07-31 06:52] LABS: BASOPHIL # 0.1 10^3/ul (0.0-0.1); BASOPHILS % 0.5 % (0.0-2.0); EOSINOPHILS # 0.2 10^3/ul (0.0-0.5); EOSINOPHILS % 1.9 % (0.0-7.0); HEMATOCRIT 27.4 % (42.0-52.0); HEMOGLOBIN 8.7 g/dl (14.0-18.0); LYMPHOCYTES # 1.2 10^3/ul (0.8-2.9); LYMPHOCYTES % 9.1 % (15.0-51.0); MEAN CORPUSCULAR HGB CONC 31.8 g/dl (32.0-37.0); MEAN CORPUSCULAR VOLUME 78.7 fl (82.0-101.0); MEAN PLATELET VOLUME 8.9 fl (7.4-10.4); MONOCYTES % 8.1 % (0.0-11.0); NEUTROPHIL # 9.7 10^3/ul (1.6-7.5); NEUTROPHILS % 76.2 % (39.0-77.0); PLATELET COUNT 426 10^3/UL (140-415); RED BLOOD COUNT 3.48 10^6/ul (4.70-6.10); RED CELL DISTRIBUTION WIDTH 18.4 % (11.5-14.5)
[2018-07-31 07:10] LABS: ANION GAP 14 (5-13); BLOOD UREA NITROGEN 60 mg/dl (7-20); CALCIUM 8.2 mg/dl (8.4-10.2); CARBON DIOXIDE 22 mmol/L (21-31); CHLORIDE 93 mmol/L (97-110); CREATININE 7.15 mg/dl (0.61-1.24); Estimated GFR 9 mL/min (>60); GLUCOSE 85 mg/dl (70-220); MAGNESIUM 2.2 mg/dl (1.7-2.5); SODIUM 129 mmol/L (135-144)
[2018-07-31] MEDS: SEVELAMER CARBONATE 800 MG TABLET PO ×3 (09:06→17:44)
[2018-07-31] MEDS: GABAPENTIN 100 MG CAP PO ×3 (09:06→20:09)
[2018-07-31] MEDS: AMLODIPINE 10 MG TAB PO (09:07)
[2018-07-31] MEDS: BALSAM PERU/CASTOR OIL 60 GM TUBE TOP ×2 (09:08→20:09)
[2018-07-31] MEDS: HEPARIN 1000 UNITS/ML 10 ML INJ CATHETER (13:06)
[2018-07-31] MEDS: FAMOTIDINE 20 MG INJ IV (13:35)
[2018-07-31] MEDS: MULTIVIT/CA CARB/B CMPLX/FA TAB PO (13:36)
[2018-07-31] MEDS: FOLIC ACID 1 MG TAB PO (13:36)
[2018-07-31] MEDS: CYANOCOBALAMIN 1000 MCG INJ IM (13:36)
[2018-07-31] MEDS: PYRIDOXINE 50 MG TAB PO (16:27)
[2018-07-31] MEDS: ACETAMINOPHEN 650MG/20.3ML CUP NGT (17:44)
[2018-08-01] MEDS: ACETAMINOPHEN 325 MG TAB PO ×3 (00:45→23:33)
[2018-08-01 06:13] LABS: ADD MAN DIFF? NO
[2018-08-01 06:20] LABS: WHITE BLOOD COUNT 11.9 10^3/ul (4.8-10.8)
[2018-08-01 06:20] LABS: BASOPHIL # 0.1 10^3/ul (0.0-0.1); BASOPHILS % 1.1 % (0.0-2.0); EOSINOPHILS # 0.2 10^3/ul (0.0-0.5); EOSINOPHILS % 1.8 % (0.0-7.0); HEMATOCRIT 26.7 % (42.0-52.0); HEMOGLOBIN 8.5 g/dl (14.0-18.0); LYMPHOCYTES # 1.2 10^3/ul (0.8-2.9); LYMPHOCYTES % 10.1 % (15.0-51.0); MEAN CORPUSCULAR HEMOGLOBIN 25.4 pg (29.0-33.0); MEAN CORPUSCULAR HGB CONC 31.8 g/dl (32.0-37.0); MEAN CORPUSCULAR VOLUME 79.7 fl (82.0-101.0); MEAN PLATELET VOLUME 8.9 fl (7.4-10.4); MONOCYTE # 1.1 10^3/ul (0.3-0.9); MONOCYTES % 9.1 % (0.0-11.0); NEUTROPHIL # 8.8 10^3/ul (1.6-7.5); NEUTROPHILS % 73.3 % (39.0-77.0); PLATELET COUNT 452 10^3/UL (140-415); RED BLOOD COUNT 3.35 10^6/ul (4.70-6.10); RED CELL DISTRIBUTION WIDTH 18.4 % (11.5-14.5)
[2018-08-01 07:01] LABS: ANION GAP 14 (5-13); BLOOD UREA NITROGEN 51 mg/dl (7-20); CALCIUM 8.5 mg/dl (8.4-10.2); CARBON DIOXIDE 23 mmol/L (21-31); CHLORIDE 95 mmol/L (97-110); CREATININE 6.28 mg/dl (0.61-1.24); Estimated GFR 10 mL/min (>60); GLUCOSE 82 mg/dl (70-220); MAGNESIUM 2.3 mg/dl (1.7-2.5); PHOSPHORUS 7.5 mg/dl (2.5-4.9); SODIUM 132 mmol/L (135-144)
[2018-08-01] MEDS: SEVELAMER CARBONATE 800 MG TABLET PO ×3 (08:00→17:27)
[2018-08-01] MEDS: GABAPENTIN 100 MG CAP PO ×3 (09:00→20:22)
[2018-08-01] MEDS: HEPARIN 1000 UNITS/ML 10 ML INJ CATHETER (11:27)
[2018-08-01] MEDS: FOLIC ACID 1 MG TAB PO (11:34)
[2018-08-01] MEDS: MULTIVIT/CA CARB/B CMPLX/FA TAB PO (11:35)
[2018-08-01] MEDS: FAMOTIDINE 20 MG INJ IV (11:35)
[2018-08-01] MEDS: PYRIDOXINE 50 MG TAB PO (11:35)
[2018-08-01] MEDS: BALSAM PERU/CASTOR OIL 60 GM TUBE TOP ×2 (11:42→20:23)
[2018-08-01] MEDS: AMLODIPINE 10 MG TAB PO (14:07)
[2018-08-02] MEDS: SEVELAMER CARBONATE 800 MG TABLET PO ×3 (08:41→17:10)
[2018-08-02] MEDS: GABAPENTIN 100 MG CAP PO ×3 (08:42→20:20)
[2018-08-02] MEDS: FOLIC ACID 1 MG TAB PO (08:42)
[2018-08-02] MEDS: FAMOTIDINE 20 MG TAB PO (08:42)
[2018-08-02] MEDS: MULTIVIT/CA CARB/B CMPLX/FA TAB PO (08:42)
[2018-08-02] MEDS: PYRIDOXINE 50 MG TAB PO (08:42)
[2018-08-02] MEDS: BALSAM PERU/CASTOR OIL 60 GM TUBE TOP ×2 (08:43→20:27)
[2018-08-02] MEDS: AMLODIPINE 10 MG TAB PO (09:00)
[2018-08-02] MEDS: ACETAMINOPHEN 325 MG TAB PO (18:32)
[2018-08-03 06:07] LABS: ADD MAN DIFF? NO
[2018-08-03 06:23] LABS: BASOPHIL # 0.1 10^3/ul (0.0-0.1); BASOPHILS % 0.8 % (0.0-2.0); EOSINOPHILS # 0.2 10^3/ul (0.0-0.5); EOSINOPHILS % 1.6 % (0.0-7.0); HEMATOCRIT 25.4 % (42.0-52.0); HEMOGLOBIN 7.9 g/dl (14.0-18.0); LYMPHOCYTES # 1.6 10^3/ul (0.8-2.9); MEAN CORPUSCULAR HGB CONC 31.1 g/dl (32.0-37.0); MEAN CORPUSCULAR VOLUME 80.4 fl (82.0-101.0); MEAN PLATELET VOLUME 8.9 fl (7.4-10.4); MONOCYTES % 7.6 % (0.0-11.0); NEUTROPHIL # 9.7 10^3/ul (1.6-7.5); NEUTROPHILS % 74.6 % (39.0-77.0); PLATELET COUNT 449 10^3/UL (140-415); RED BLOOD COUNT 3.16 10^6/ul (4.70-6.10); RED CELL DISTRIBUTION WIDTH 18.6 % (11.5-14.5)
[2018-08-03 07:00] LABS: ANION GAP 12 (5-13); BLOOD UREA NITROGEN 49 mg/dl (7-20); CALCIUM 8.3 mg/dl (8.4-10.2); CARBON DIOXIDE 24 mmol/L (21-31); CHLORIDE 98 mmol/L (97-110); Estimated GFR 9 mL/min (>60); GLUCOSE 93 mg/dl (70-220); POTASSIUM 3.6 mmol/L (3.5-5.1); SODIUM 134 mmol/L (135-144)
[2018-08-03] MEDS: AMLODIPINE 10 MG TAB PO (09:04)
[2018-08-03] MEDS: FOLIC ACID 1 MG TAB PO (09:04)
[2018-08-03] MEDS: GABAPENTIN 100 MG CAP PO ×3 (09:04→20:38)
[2018-08-03] MEDS: PYRIDOXINE 50 MG TAB PO (09:04)
[2018-08-03] MEDS: BALSAM PERU/CASTOR OIL 60 GM TUBE TOP ×2 (09:05→20:39)
[2018-08-03] MEDS: FAMOTIDINE 20 MG TAB PO (09:05)
[2018-08-03] MEDS: SEVELAMER CARBONATE 800 MG TABLET PO ×3 (09:05→17:18)
[2018-08-03] MEDS: MULTIVIT/CA CARB/B CMPLX/FA TAB PO (09:05)
[2018-08-03] MEDS: MUPIROCIN 2% 22 GM OINT TOP (17:18)
[2018-08-03] MEDS: ACETAMINOPHEN 325 MG TAB PO (20:41)
[2018-08-04] MEDS: MUPIROCIN 2% 22 GM OINT TOP ×3 (01:23→20:22)
[2018-08-04 05:50] LABS: ADD MAN DIFF? NO
[2018-08-04 05:54] LABS: BASOPHIL # 0.1 10^3/ul (0.0-0.1); BASOPHILS % 0.7 % (0.0-2.0); EOSINOPHILS # 0.2 10^3/ul (0.0-0.5); EOSINOPHILS % 1.8 % (0.0-7.0); HEMATOCRIT 24.6 % (42.0-52.0); HEMOGLOBIN 7.7 g/dl (14.0-18.0); LYMPHOCYTES # 1.4 10^3/ul (0.8-2.9); LYMPHOCYTES % 10.4 % (15.0-51.0); MEAN CORPUSCULAR HEMOGLOBIN 25.4 pg (29.0-33.0); MEAN CORPUSCULAR HGB CONC 31.3 g/dl (32.0-37.0); MEAN CORPUSCULAR VOLUME 81.2 fl (82.0-101.0); MEAN PLATELET VOLUME 8.8 fl (7.4-10.4); MONOCYTE # 1.2 10^3/ul (0.3-0.9); MONOCYTES % 8.6 % (0.0-11.0); NEUTROPHIL # 10.1 10^3/ul (1.6-7.5); NEUTROPHILS % 75.7 % (39.0-77.0); PLATELET COUNT 446 10^3/UL (140-415); RED BLOOD COUNT 3.03 10^6/ul (4.70-6.10); RED CELL DISTRIBUTION WIDTH 18.5 % (11.5-14.5)
[2018-08-04 05:54] LABS: WHITE BLOOD COUNT 13.4 10^3/ul (4.8-10.8)
[2018-08-04 05:57] LABS: ANION GAP 12 (5-13); BLOOD UREA NITROGEN 55 mg/dl (7-20); CALCIUM 8.5 mg/dl (8.4-10.2); CARBON DIOXIDE 24 mmol/L (21-31); CHLORIDE 97 mmol/L (97-110); CREATININE 8.22 mg/dl (0.61-1.24); Estimated GFR 7 mL/min (>60); GLUCOSE 94 mg/dl (70-220); MAGNESIUM 2.2 mg/dl (1.7-2.5); PHOSPHORUS 7.3 mg/dl (2.5-4.9); POTASSIUM 3.7 mmol/L (3.5-5.1); SODIUM 133 mmol/L (135-144)
[2018-08-04] MEDS: SEVELAMER CARBONATE 800 MG TABLET PO ×3 (08:34→17:36)
[2018-08-04] MEDS: FOLIC ACID 1 MG TAB PO (08:34)
[2018-08-04] MEDS: MULTIVIT/CA CARB/B CMPLX/FA TAB PO (08:34)
[2018-08-04] MEDS: PYRIDOXINE 50 MG TAB PO (08:34)
[2018-08-04] MEDS: GABAPENTIN 100 MG CAP PO ×3 (08:34→20:22)
[2018-08-04] MEDS: FAMOTIDINE 20 MG TAB PO (08:34)
[2018-08-04] MEDS: AMLODIPINE 10 MG TAB PO (08:35)
[2018-08-04] MEDS: BALSAM PERU/CASTOR OIL 60 GM TUBE TOP ×2 (08:35→20:22)
[2018-08-04] MEDS: HEPARIN 1000 UNITS/ML 10 ML INJ CATHETER (11:17)
[2018-08-04] MEDS: MENTHOL/METH SALICYLATE OINT TOP ×3 (12:51→20:22)
[2018-08-04] MEDS: morphine 2 MG INJ IV (13:22)
[2018-08-04] MEDS: HEPARIN 5,000 UNIT/1 ML VIAL SC (20:24)
[2018-08-05] MEDS: ACETAMINOPHEN 325 MG TAB PO (04:35)
[2018-08-05 05:41] LABS: ADD MAN DIFF? NO
[2018-08-05 05:44] LABS: WHITE BLOOD COUNT 12.3 10^3/ul (4.8-10.8)
[2018-08-05 05:44] LABS: BASOPHIL # 0.1 10^3/ul (0.0-0.1); BASOPHILS % 0.8 % (0.0-2.0); EOSINOPHILS # 0.2 10^3/ul (0.0-0.5); EOSINOPHILS % 1.6 % (0.0-7.0); HEMATOCRIT 24.3 % (42.0-52.0); HEMOGLOBIN 7.6 g/dl (14.0-18.0); LYMPHOCYTES # 1.5 10^3/ul (0.8-2.9); LYMPHOCYTES % 12.1 % (15.0-51.0); MEAN CORPUSCULAR HEMOGLOBIN 25.6 pg (29.0-33.0); MEAN CORPUSCULAR HGB CONC 31.3 g/dl (32.0-37.0); MEAN CORPUSCULAR VOLUME 81.8 fl (82.0-101.0); MEAN PLATELET VOLUME 8.9 fl (7.4-10.4); MONOCYTE # 1.1 10^3/ul (0.3-0.9); MONOCYTES % 9.1 % (0.0-11.0); NEUTROPHIL # 9.1 10^3/ul (1.6-7.5); NEUTROPHILS % 74.4 % (39.0-77.0); PLATELET COUNT 426 10^3/UL (140-415); RED BLOOD COUNT 2.97 10^6/ul (4.70-6.10); RED CELL DISTRIBUTION WIDTH 18.5 % (11.5-14.5)
[2018-08-05 07:11] LABS: ALBUMIN 3.2 g/dl (3.3-4.9); ANION GAP 12 (5-13); BLOOD UREA NITROGEN 39 mg/dl (7-20); CALCIUM 8.6 mg/dl (8.4-10.2); CARBON DIOXIDE 23 mmol/L (21-31); CHLORIDE 99 mmol/L (97-110); GLUCOSE 87 mg/dl (70-220); MAGNESIUM 2.2 mg/dl (1.7-2.5); PHOSPHORUS 5.3 mg/dl (2.5-4.9); POTASSIUM 3.6 mmol/L (3.5-5.1); SODIUM 134 mmol/L (135-144)
[2018-08-05] MEDS: SEVELAMER CARBONATE 800 MG TABLET PO ×3 (08:37→18:07)
[2018-08-05] MEDS: predniSONE 20 MG TAB PO (08:38)
[2018-08-05] MEDS: PYRIDOXINE 50 MG TAB PO (08:38)
[2018-08-05] MEDS: GABAPENTIN 100 MG CAP PO ×3 (08:38→22:00)
[2018-08-05] MEDS: FAMOTIDINE 20 MG TAB PO (08:38)
[2018-08-05] MEDS: MULTIVIT/CA CARB/B CMPLX/FA TAB PO (08:38)
[2018-08-05] MEDS: FOLIC ACID 1 MG TAB PO (08:38)
[2018-08-05] MEDS: HYDROCODONE/APAP (10/325) TAB PO (08:38)
[2018-08-05] MEDS: AMLODIPINE 10 MG TAB PO (08:39)
[2018-08-05] MEDS: HEPARIN 5,000 UNIT/1 ML VIAL SC ×2 (08:47→22:06)
[2018-08-05] MEDS: BALSAM PERU/CASTOR OIL 60 GM TUBE TOP ×2 (10:20→22:01)
[2018-08-05] MEDS: MENTHOL/METH SALICYLATE OINT TOP ×4 (10:20→22:00)
[2018-08-05] MEDS: MUPIROCIN 2% 22 GM OINT TOP ×2 (10:20→22:01)
[2018-08-06 05:17] LABS: ADD MAN DIFF? NO
[2018-08-06 05:27] LABS: BASOPHIL # 0.1 10^3/ul (0.0-0.1); BASOPHILS % 0.8 % (0.0-2.0); EOSINOPHILS # 0.1 10^3/ul (0.0-0.5); EOSINOPHILS % 0.4 % (0.0-7.0); HEMATOCRIT 24.1 % (42.0-52.0); HEMOGLOBIN 7.6 g/dl (14.0-18.0); LYMPHOCYTES # 1.5 10^3/ul (0.8-2.9); LYMPHOCYTES % 10.4 % (15.0-51.0); MEAN CORPUSCULAR HEMOGLOBIN 25.6 pg (29.0-33.0); MEAN CORPUSCULAR HGB CONC 31.5 g/dl (32.0-37.0); MEAN CORPUSCULAR VOLUME 81.1 fl (82.0-101.0); MEAN PLATELET VOLUME 9.2 fl (7.4-10.4); MONOCYTE # 1.2 10^3/ul (0.3-0.9); MONOCYTES % 8.2 % (0.0-11.0); NEUTROPHIL # 11.5 10^3/ul (1.6-7.5); NEUTROPHILS % 78.6 % (39.0-77.0); PLATELET COUNT 384 10^3/UL (140-415); POSITIVE DIFF @See below; RED BLOOD COUNT 2.97 10^6/ul (4.70-6.10); RED CELL DISTRIBUTION WIDTH 18.2 % (11.5-14.5)
[2018-08-06 05:27] LABS: WHITE BLOOD COUNT 14.6 10^3/ul (4.8-10.8)
[2018-08-06] MEDS: HYDROCODONE/APAP (5/325) TAB PO (05:35)
[2018-08-06 06:01] LABS: ALBUMIN 3.3 g/dl (3.3-4.9); ANION GAP 11 (5-13); BLOOD UREA NITROGEN 51 mg/dl (7-20); CALCIUM 8.8 mg/dl (8.4-10.2); CARBON DIOXIDE 23 mmol/L (21-31); CHLORIDE 99 mmol/L (97-110); CREATININE 7.24 mg/dl (0.61-1.24); GLUCOSE 102 mg/dl (70-220); MAGNESIUM 2.3 mg/dl (1.7-2.5); PHOSPHORUS 6.2 mg/dl (2.5-4.9); POTASSIUM 3.8 mmol/L (3.5-5.1); SODIUM 133 mmol/L (135-144)
[2018-08-06] MEDS: MULTIVIT/CA CARB/B CMPLX/FA TAB PO (08:26)
[2018-08-06] MEDS: AMLODIPINE 10 MG TAB PO ×2 (08:27→08:41)
[2018-08-06] MEDS: FOLIC ACID 1 MG TAB PO (08:27)
[2018-08-06] MEDS: PYRIDOXINE 50 MG TAB PO (08:27)
[2018-08-06] MEDS: GABAPENTIN 100 MG CAP PO ×3 (08:27→21:10)
[2018-08-06] MEDS: SEVELAMER CARBONATE 800 MG TABLET PO ×3 (08:28→18:05)
[2018-08-06] MEDS: predniSONE 20 MG TAB PO (08:28)
[2018-08-06] MEDS: BALSAM PERU/CASTOR OIL 60 GM TUBE TOP ×2 (08:29→21:10)
[2018-08-06] MEDS: MENTHOL/METH SALICYLATE OINT TOP ×2 (08:29→13:33)
[2018-08-06] MEDS: FAMOTIDINE 20 MG TAB PO (08:29)
[2018-08-06] MEDS: MUPIROCIN 2% 22 GM OINT TOP ×2 (08:30→21:10)
[2018-08-06] MEDS: HEPARIN 5,000 UNIT/1 ML VIAL SC ×2 (08:34→21:10)
[2018-08-06] MEDS: HEPARIN 1000 UNITS/ML 10 ML INJ CATHETER (13:29)
[2018-08-06] MEDS ORDERED: BISACODYL (EC) 5 MG TAB PO (16:00)
[2018-08-06] MEDS: SENNA/DOCUSATE NA (8.6MG/50MG) TAB PO ×3 (16:02→21:11)
[2018-08-06] MEDS: POLYETHYLENE GLYCOL 17 GM PACKET PO (16:02)
[2018-08-06] MEDS ORDERED: MENTHOL/METH SALICYLATE OINT TOP (17:30)
[2018-08-06] MEDS: morphine 2 MG INJ IV (21:44)
[2018-08-06] MEDS: HYDROCODONE/APAP (10/325) TAB PO (23:39)
[2018-08-07] MEDS: HYDROmorphONE 1 MG/ML SYG IV ×3 (00:24→22:11)
[2018-08-07] MEDS ORDERED: LIDOCAINE 2% VISC 15 ML CUP PO (03:30)
[2018-08-07 05:00] LABS: ADD MAN DIFF? NO
[2018-08-07 05:01] LABS: ABNORMAL IP MESSAGE 1; BASOPHIL # 0.1 10^3/ul (0.0-0.1); BASOPHILS % 0.4 % (0.0-2.0); EOSINOPHILS % 0.1 % (0.0-7.0); HEMATOCRIT 26.9 % (42.0-52.0); HEMOGLOBIN 8.4 g/dl (14.0-18.0); LYMPHOCYTES # 1.1 10^3/ul (0.8-2.9); LYMPHOCYTES % 4.6 % (15.0-51.0); MEAN CORPUSCULAR HEMOGLOBIN 25.5 pg (29.0-33.0); MEAN CORPUSCULAR HGB CONC 31.2 g/dl (32.0-37.0); MEAN CORPUSCULAR VOLUME 81.5 fl (82.0-101.0); MEAN PLATELET VOLUME 8.6 fl (7.4-10.4); MONOCYTE # 1.3 10^3/ul (0.3-0.9); MONOCYTES % 5.5 % (0.0-11.0); NEUTROPHIL # 21.5 10^3/ul (1.6-7.5); NEUTROPHILS % 88.5 % (39.0-77.0); PLATELET COUNT 451 10^3/UL (140-415); POSITIVE DIFF @See below; RED CELL DISTRIBUTION WIDTH 18.3 % (11.5-14.5)
[2018-08-07 05:01] LABS: WHITE BLOOD COUNT 24.3 10^3/ul (4.8-10.8)
[2018-08-07 05:20] LABS: ALBUMIN 3.4 g/dl (3.3-4.9); ANION GAP 10 (5-13); BLOOD UREA NITROGEN 40 mg/dl (7-20); CARBON DIOXIDE 26 mmol/L (21-31); CHLORIDE 99 mmol/L (97-110); CREATININE 5.35 mg/dl (0.61-1.24); GLUCOSE 96 mg/dl (70-220); MAGNESIUM 2.1 mg/dl (1.7-2.5); PHOSPHORUS 4.9 mg/dl (2.5-4.9); SODIUM 135 mmol/L (135-144)
[2018-08-07] MEDS: LIDOCAINE 2% MT (05:34)
[2018-08-07] MEDS: VISCOUS MT (05:34)
[2018-08-07] MEDS: SEVELAMER CARBONATE 800 MG TABLET PO ×3 (07:50→17:55)
[2018-08-07] MEDS: HEPARIN 5,000 UNIT/1 ML VIAL SC ×2 (09:00→22:47)
[2018-08-07] MEDS: AMLODIPINE 10 MG TAB PO (09:00)
[2018-08-07] MEDS: BALSAM PERU/CASTOR OIL 60 GM TUBE TOP ×2 (09:32→22:43)
[2018-08-07] MEDS: MUPIROCIN 2% 22 GM OINT TOP ×2 (09:32→22:43)
[2018-08-07] MEDS: FAMOTIDINE 20 MG TAB PO (09:38)
[2018-08-07] MEDS: PYRIDOXINE 50 MG TAB PO (09:38)
[2018-08-07] MEDS: predniSONE 20 MG TAB PO (09:38)
[2018-08-07] MEDS: MULTIVIT/CA CARB/B CMPLX/FA TAB PO (09:39)
[2018-08-07] MEDS: GABAPENTIN 100 MG CAP PO ×3 (09:39→22:11)
[2018-08-07] MEDS: SENNA/DOCUSATE NA (8.6MG/50MG) TAB PO ×2 (09:39→22:11)
[2018-08-07] MEDS: FOLIC ACID 1 MG TAB PO (09:39)
[2018-08-07] MEDS: POLYETHYLENE GLYCOL 17 GM PACKET PO (09:40)
[2018-08-07] MEDS: METOCLOPRAMIDE 10 MG INJ IV ×3 (10:32→22:10)
[2018-08-07] MEDS ORDERED: HEPARIN 1000 UNITS/ML 10 ML INJ (11:48)
[2018-08-07] MEDS ORDERED: LIDOCAINE 1% (MDV) 20 ML INJ (11:48)
[2018-08-07] MEDS ORDERED: IOHEXOL 350MG/ML 50 ML BTL (12:35)
[2018-08-07] MEDS ORDERED: MIDAZOLAM 1 MG/ML 2 ML INJ (12:49)
[2018-08-07] MEDS ORDERED: PROPOFOL 60 ML (12:49)
[2018-08-07] MEDS: PHENOL 1.4% SOLN 180 ML BTL MT ×3 (16:43→22:10)
[2018-08-08] MEDS: MENTHOL/METH SALICYLATE OINT TOP (01:23)
[2018-08-08] MEDS: PHENOL 1.4% SOLN 180 ML BTL MT ×2 (01:24→03:48)
[2018-08-08] MEDS: HYDROmorphONE 1 MG/ML SYG IV ×4 (03:46→18:35)
[2018-08-08] MEDS: METOCLOPRAMIDE 10 MG INJ IV ×4 (03:51→20:49)
[2018-08-08 05:56] LABS: ADD MAN DIFF? NO
[2018-08-08 05:57] LABS: ABNORMAL IP MESSAGE 1; BASOPHIL # 0.1 10^3/ul (0.0-0.1); BASOPHILS % 0.2 % (0.0-2.0); HEMATOCRIT 25.1 % (42.0-52.0); HEMOGLOBIN 7.7 g/dl (14.0-18.0); LYMPHOCYTES # 1.2 10^3/ul (0.8-2.9); LYMPHOCYTES % 5.4 % (15.0-51.0); MEAN CORPUSCULAR HEMOGLOBIN 25.2 pg (29.0-33.0); MEAN CORPUSCULAR HGB CONC 30.7 g/dl (32.0-37.0); MEAN PLATELET VOLUME 8.8 fl (7.4-10.4); MONOCYTE # 1.7 10^3/ul (0.3-0.9); MONOCYTES % 7.6 % (0.0-11.0); NEUTROPHILS % 85.8 % (39.0-77.0); PLATELET COUNT 398 10^3/UL (140-415); POSITIVE DIFF @See below; RED BLOOD COUNT 3.06 10^6/ul (4.70-6.10); RED CELL DISTRIBUTION WIDTH 18.8 % (11.5-14.5)
[2018-08-08 05:57] LABS: WHITE BLOOD COUNT 22.1 10^3/ul (4.8-10.8)
[2018-08-08 07:01] LABS: ANION GAP 13 (5-13); BLOOD UREA NITROGEN 54 mg/dl (7-20); CALCIUM 8.8 mg/dl (8.4-10.2); CARBON DIOXIDE 25 mmol/L (21-31); CHLORIDE 101 mmol/L (97-110); CREATININE 6.43 mg/dl (0.61-1.24); Estimated GFR 10 mL/min (>60); GLUCOSE 107 mg/dl (70-220); MAGNESIUM 2.3 mg/dl (1.7-2.5); PHOSPHORUS 6.4 mg/dl (2.5-4.9); POTASSIUM 4.2 mmol/L (3.5-5.1); SODIUM 139 mmol/L (135-144)
[2018-08-08] MEDS: AMLODIPINE 10 MG TAB PO (09:00)
[2018-08-08] MEDS: PYRIDOXINE 50 MG TAB PO (09:05)
[2018-08-08] MEDS: FAMOTIDINE 20 MG TAB PO (09:05)
[2018-08-08] MEDS: MULTIVIT/CA CARB/B CMPLX/FA TAB PO (09:05)
[2018-08-08] MEDS: SENNA/DOCUSATE NA (8.6MG/50MG) TAB PO ×2 (09:05→20:49)
[2018-08-08] MEDS: FOLIC ACID 1 MG TAB PO (09:05)
[2018-08-08] MEDS: GABAPENTIN 100 MG CAP PO ×3 (09:05→20:49)
[2018-08-08] MEDS: predniSONE 20 MG TAB PO (09:06)
[2018-08-08] MEDS: SEVELAMER CARBONATE 800 MG TABLET PO ×3 (09:06→16:58)
[2018-08-08] MEDS: HEPARIN 5,000 UNIT/1 ML VIAL SC ×2 (09:09→21:04)
[2018-08-08] MEDS: BALSAM PERU/CASTOR OIL 60 GM TUBE TOP ×2 (09:10→20:50)
[2018-08-08] MEDS: MUPIROCIN 2% 22 GM OINT TOP ×2 (09:10→20:50)
[2018-08-08] MEDS: POLYETHYLENE GLYCOL 17 GM PACKET PO (09:14)
[2018-08-08] MEDS: LORAZEPAM 2 MG INJ IV ×2 (11:04→15:50)
[2018-08-08] MEDS: IOHEXOL 300MG/ML 150 ML BTL (11:32)
[2018-08-09] MEDS: HYDROmorphONE 1 MG/ML SYG IV ×3 (00:09→21:01)
[2018-08-09] MEDS: HEPARIN 1000 UNITS/ML 10 ML INJ CATHETER (01:39)
[2018-08-09] MEDS: LEVALBUTEROL (NEB) 1.25 MG/0.5 ML AMP HHN ×2 (02:35→18:27)
[2018-08-09] MEDS: METOCLOPRAMIDE 10 MG INJ IV ×4 (03:00→20:54)
[2018-08-09] MEDS: LORAZEPAM 2 MG INJ IV ×2 (03:17→10:48)
[2018-08-09] MEDS: SEVELAMER CARBONATE 800 MG TABLET PO ×3 (08:39→16:52)
[2018-08-09] MEDS: predniSONE 10 MG TAB PO (08:39)
[2018-08-09] MEDS: PYRIDOXINE 50 MG TAB PO (08:42)
[2018-08-09] MEDS: POLYETHYLENE GLYCOL 17 GM PACKET PO (08:42)
[2018-08-09] MEDS: FOLIC ACID 1 MG TAB PO (08:42)
[2018-08-09] MEDS: FAMOTIDINE 20 MG TAB PO (08:44)
[2018-08-09] MEDS: GABAPENTIN 100 MG CAP PO ×3 (08:44→20:53)
[2018-08-09] MEDS: MULTIVIT/CA CARB/B CMPLX/FA TAB PO (08:44)
[2018-08-09] MEDS: AMLODIPINE 10 MG TAB PO (08:45)
[2018-08-09] MEDS: HEPARIN 5,000 UNIT/1 ML VIAL SC ×2 (08:46→20:55)
[2018-08-09] MEDS: SENNA/DOCUSATE NA (8.6MG/50MG) TAB PO ×2 (08:52→20:57)
[2018-08-09] MEDS: PHENOL 1.4% SOLN 180 ML BTL MT ×2 (08:55→18:06)
[2018-08-09] MEDS: MUPIROCIN 2% 22 GM OINT TOP ×2 (09:19→20:59)
[2018-08-09] MEDS: BALSAM PERU/CASTOR OIL 60 GM TUBE TOP ×2 (09:20→20:59)
[2018-08-09] MEDS: HYDROCODONE/APAP (10/325) TAB PO ×2 (09:27→17:00)
[2018-08-09 11:22] LABS: ADD MAN DIFF? NO
[2018-08-09 11:24] LABS: ABNORMAL IP MESSAGE 1; BASOPHIL # 0.1 10^3/ul (0.0-0.1); BASOPHILS % 0.4 % (0.0-2.0); EOSINOPHILS # 0.1 10^3/ul (0.0-0.5); EOSINOPHILS % 0.2 % (0.0-7.0); HEMATOCRIT 25.3 % (42.0-52.0); HEMOGLOBIN 7.7 g/dl (14.0-18.0); MEAN CORPUSCULAR HEMOGLOBIN 25.2 pg (29.0-33.0); MEAN CORPUSCULAR HGB CONC 30.4 g/dl (32.0-37.0); MONOCYTE # 1.9 10^3/ul (0.3-0.9); MONOCYTES % 7.4 % (0.0-11.0); NEUTROPHIL # 22.1 10^3/ul (1.6-7.5); NEUTROPHILS % 86.7 % (39.0-77.0); PLATELET COUNT 375 10^3/UL (140-415); POSITIVE DIFF @See below; RED BLOOD COUNT 3.05 10^6/ul (4.70-6.10); RED CELL DISTRIBUTION WIDTH 18.4 % (11.5-14.5)
[2018-08-09 11:24] LABS: WHITE BLOOD COUNT 25.5 10^3/ul (4.8-10.8)
[2018-08-09 11:24] LABS: LACTIC ACID 1.2 mmol/L (0.5-2.0)
[2018-08-09 11:50] LABS: ALBUMIN 3.5 g/dl (3.3-4.9); ANION GAP 9 (5-13); BLOOD UREA NITROGEN 40 mg/dl (7-20); CALCIUM 8.7 mg/dl (8.4-10.2); CARBON DIOXIDE 28 mmol/L (21-31); CHLORIDE 96 mmol/L (97-110); CREATININE 4.63 mg/dl (0.61-1.24); GLUCOSE 113 mg/dl (70-220); MAGNESIUM 2.1 mg/dl (1.7-2.5); PHOSPHORUS 4.9 mg/dl (2.5-4.9); POTASSIUM 4.1 mmol/L (3.5-5.1); SODIUM 133 mmol/L (135-144)
[2018-08-10] MEDS: SOD CHLORIDE 0.9% 500 ML IV (00:07)
[2018-08-10] MEDS: METOCLOPRAMIDE 10 MG INJ IV (03:00)
[2018-08-10] MEDS: ACETAMINOPHEN 325 MG TAB PO (03:00)
[2018-08-10 05:13] LABS: ADD MAN DIFF? NO
[2018-08-10 05:22] LABS: BASOPHILS % 0.1 % (0.0-2.0); EOSINOPHILS # 0.1 10^3/ul (0.0-0.5); EOSINOPHILS % 0.2 % (0.0-7.0); HEMATOCRIT 25.5 % (42.0-52.0); HEMOGLOBIN 7.8 g/dl (14.0-18.0); LYMPHOCYTES # 0.7 10^3/ul (0.8-2.9); LYMPHOCYTES % 3.3 % (15.0-51.0); MEAN CORPUSCULAR HEMOGLOBIN 25.2 pg (29.0-33.0); MEAN CORPUSCULAR HGB CONC 30.6 g/dl (32.0-37.0); MEAN CORPUSCULAR VOLUME 82.5 fl (82.0-101.0); MONOCYTE # 1.3 10^3/ul (0.3-0.9); MONOCYTES % 6.5 % (0.0-11.0); NEUTROPHIL # 18.2 10^3/ul (1.6-7.5); NEUTROPHILS % 89.1 % (39.0-77.0); PLATELET COUNT 405 10^3/UL (140-415); RED BLOOD COUNT 3.09 10^6/ul (4.70-6.10); RED CELL DISTRIBUTION WIDTH 18.3 % (11.5-14.5)
[2018-08-10 05:22] LABS: WHITE BLOOD COUNT 20.4 10^3/ul (4.8-10.8)
[2018-08-10 05:48] LABS: LACTIC ACID 1.5 mmol/L (0.5-2.0)
[2018-08-10] MEDS: PHENOL 1.4% SOLN 180 ML BTL MT (05:53)
[2018-08-10 05:57] LABS: ANION GAP 13 (5-13)
[2018-08-10 06:03] LABS: CARBON DIOXIDE 26 mmol/L (21-31); CHLORIDE 95 mmol/L (97-110); POTASSIUM 4.5 mmol/L (3.5-5.1); SODIUM 134 mmol/L (135-144)
[2018-08-10 06:04] LABS: ALBUMIN 3.2 g/dl (3.3-4.9); BLOOD UREA NITROGEN 52 mg/dl (7-20); CALCIUM 8.5 mg/dl (8.4-10.2); CREATININE 4.53 mg/dl (0.61-1.24); GLUCOSE 112 mg/dl (70-220); MAGNESIUM 2.1 mg/dl (1.7-2.5); PHOSPHORUS 6.4 mg/dl (2.5-4.9)
[2018-08-10] MEDS: AMLODIPINE 10 MG TAB PO (09:00)
[2018-08-10] MEDS ORDERED: METOCLOPRAMIDE 5 MG TAB PO (09:00)
[2018-08-10] MEDS: HYDROCODONE/APAP (10/325) TAB PO (09:06)
[2018-08-10] MEDS: SEVELAMER CARBONATE 800 MG TABLET PO ×4 (09:06→17:55)
[2018-08-10] MEDS: FOLIC ACID 1 MG TAB PO (09:06)
[2018-08-10] MEDS: FAMOTIDINE 20 MG TAB PO (09:07)
[2018-08-10] MEDS: PYRIDOXINE 50 MG TAB PO (09:07)
[2018-08-10] MEDS: POLYETHYLENE GLYCOL 17 GM PACKET PO (09:07)
[2018-08-10] MEDS: SENNA/DOCUSATE NA (8.6MG/50MG) TAB PO ×2 (09:07→22:31)
[2018-08-10] MEDS: predniSONE 10 MG TAB PO (09:07)
[2018-08-10] MEDS: MULTIVIT/CA CARB/B CMPLX/FA TAB PO (09:07)
[2018-08-10] MEDS: GABAPENTIN 100 MG CAP PO ×3 (09:07→22:31)
[2018-08-10] MEDS: MUPIROCIN 2% 22 GM OINT TOP (09:08)
[2018-08-10] MEDS: BALSAM PERU/CASTOR OIL 60 GM TUBE TOP ×2 (09:08→22:31)
[2018-08-10] MEDS: HEPARIN 5,000 UNIT/1 ML VIAL SC ×2 (09:11→22:32)
[2018-08-10] MEDS: LEVALBUTEROL (NEB) 1.25 MG/0.5 ML AMP HHN ×3 (10:22→23:00)
[2018-08-10] MEDS ORDERED: ONDANSETRON (ODT) 4 MG TAB ODT (12:00)
[2018-08-10] MEDS: morphine LIQ (10 MG/5 ML) CUP PO (13:17)
[2018-08-10] MEDS: METOCLOPRAMIDE 5 MG TAB PO ×2 (15:00→22:31)
[2018-08-10] MEDS: FUROSEMIDE 20 MG TAB PO (15:04)
[2018-08-10] MEDS: LORAZEPAM 0.5 MG TAB PO (15:04)
[2018-08-10] MEDS: ALBUMIN HUMAN 25% 100 ML IV ×3 (18:00→22:22)
[2018-08-10] MEDS: HEPARIN 1000 UNITS/ML 10 ML INJ CATHETER (20:37)
[2018-08-10] MEDS ORDERED: ALBUMIN HUMAN 5% 0 ML (21:33)
[2018-08-10] MEDS ORDERED: NORepinephrine 8MG/250 ML (PMX 250 ML (21:37)
[2018-08-10] MEDS: NORepinephrine 8MG/250 ML (PMX 250 ML IV (22:31)
[2018-08-11] MEDS: METOCLOPRAMIDE 5 MG TAB PO ×4 (03:00→21:42)
[2018-08-11] MEDS: ONDANSETRON 4 MG INJ IV ×3 (03:56→14:31)
[2018-08-11 06:16] LABS: ABNORMAL IP MESSAGE 1; HEMATOCRIT 23.6 % (42.0-52.0); HEMOGLOBIN 7.3 g/dl (14.0-18.0); MEAN CORPUSCULAR HEMOGLOBIN 25.3 pg (29.0-33.0); MEAN CORPUSCULAR HGB CONC 30.9 g/dl (32.0-37.0); MEAN CORPUSCULAR VOLUME 81.9 fl (82.0-101.0); MEAN PLATELET VOLUME 9.1 fl (7.4-10.4); PLATELET COUNT 474 10^3/UL (140-415); POSITIVE DIFF @See below; RED BLOOD COUNT 2.88 10^6/ul (4.70-6.10); RED CELL DISTRIBUTION WIDTH 17.7 % (11.5-14.5)
[2018-08-11 06:24] LABS: ADD MAN DIFF? YES
[2018-08-11 06:44] LABS: ALBUMIN 3.6 g/dl (3.3-4.9); ANION GAP 15 (5-13); BLOOD UREA NITROGEN 42 mg/dl (7-20); CALCIUM 8.7 mg/dl (8.4-10.2); CARBON DIOXIDE 24 mmol/L (21-31); CHLORIDE 92 mmol/L (97-110); CREATININE 4.11 mg/dl (0.61-1.24); GLUCOSE 112 mg/dl (70-220); PHOSPHORUS 5.6 mg/dl (2.5-4.9); POTASSIUM 4.3 mmol/L (3.5-5.1); SODIUM 131 mmol/L (135-144)
[2018-08-11 07:58] LABS: ANISOCYTOSIS 2+ (0-0); BAND NEUTROPHILS #M 7.6 10^3/ul (0.0-0.6); BAND NEUTROPHILS % (M) 24 % (0-4); HYPOCHROMASIA 1+ (0-0); LYMPHOCYTES #M 0.9 10^3/ul (0.8-2.9); LYMPHOCYTES % (M) 3 % (15-51); MICROCYTOSIS 2+ (0-0); MONOCYTE #M 2.2 10^3/ul (0.3-0.9); MONOCYTES % (M) 7 % (0-11); PLATELET ESTIMATE NORMAL; POIKILOCYTOSIS 1+ (0-0); POLYCHROMASIA 1+ (0-0); REACTIVE LYMPHOCYTES #M 0.3 10^3/ul (0.0-0.0); REACTIVE LYMPHOCYTES% (M) 1 % (0-0); SEG NEUT #M 23.2 10^3/ul (1.6-7.5); SEGMENTED NEUTROPHILS (M) % 65 % (39-77); SMUDGE%M 3 % (0-0)
[2018-08-11] MEDS: POLYETHYLENE GLYCOL 17 GM PACKET PO (08:10)
[2018-08-11] MEDS: SENNA/DOCUSATE NA (8.6MG/50MG) TAB PO ×2 (08:10→21:42)
[2018-08-11] MEDS: AMLODIPINE 10 MG TAB PO (08:10)
[2018-08-11] MEDS: MULTIVIT/CA CARB/B CMPLX/FA TAB PO (08:17)
[2018-08-11] MEDS: FAMOTIDINE 20 MG TAB PO (08:17)
[2018-08-11] MEDS: SEVELAMER CARBONATE 800 MG TABLET PO ×3 (08:17→17:39)
[2018-08-11] MEDS: GABAPENTIN 100 MG CAP PO ×3 (08:17→21:42)
[2018-08-11] MEDS: FOLIC ACID 1 MG TAB PO (08:17)
[2018-08-11] MEDS: HEPARIN 5,000 UNIT/1 ML VIAL SC ×2 (08:23→21:43)
[2018-08-11] MEDS: BALSAM PERU/CASTOR OIL 60 GM TUBE TOP ×2 (08:23→21:44)
[2018-08-11] MEDS ORDERED: VANCOMYCIN IV PER PHARMACY XX ×2 (09:00→22:30)
[2018-08-11 09:01] LABS: LACTIC ACID 1.1 mmol/L (0.5-2.0)
[2018-08-11] MEDS: IPRATROPIUM (NEB) 0.5 MG/2.5 ML AMP HHN ×4 (09:17→20:36)
[2018-08-11] MEDS: ACETYLCYSTEINE 20% 4 ML VIAL NEB ×3 (09:17→20:36)
[2018-08-11] MEDS: LEVALBUTEROL (NEB) 1.25 MG/0.5 ML AMP HHN ×4 (09:17→20:36)
[2018-08-11] MEDS: PYRIDOXINE 50 MG TAB PO (09:45)
[2018-08-11] MEDS: predniSONE 10 MG TAB PO (09:45)
[2018-08-11] MEDS: CEFEPIME 1GM/50 ML (PMX) 50 ML IVPB (09:47)
[2018-08-11 09:48] LABS: PROCALCITONIN 26.46 ng/mL (0.00-0.10)
[2018-08-11] MEDS: VANCOMYCIN HCL 2 GM in SOD CHLORIDE 0.9% 500 ML IVPB (11:30)
[2018-08-11 11:33] LABS: ADD UMIC YES; UR AMORPHOUS CRYSTAL FEW /HPF (NONE SEEN); UR ASCORBIC ACID NEGATIVE (NEGATIVE); UR BACTERIA FEW /HPF (NONE SEEN); UR BILIRUBIN (Dip) NEGATIVE (NEGATIVE); UR BLOOD (Dip) 2+ mg/dL (NEGATIVE); UR CELLULAR CAST FEW /HPF (NONE SEEN); UR CLARITY CLOUDY (CLEAR); UR COLOR AMBER (YELLOW); UR GLUCOSE (Dip) NEGATIVE (NEGATIVE); UR KETONES (Dip) NEGATIVE (NEGATIVE); UR LEUKOCYTE ESTERASE (Dip) 2+ Leu/ul (NEGATIVE); UR MUCUS FEW /HPF (NONE SEEN); UR NITRITE (Dip) NEGATIVE (NEGATIVE); UR RBC 4 /HPF (0-5); UR SPECIFIC GRAVITY (Dip) 1.012 (1.003-1.030); UR TOTAL PROTEIN (Dip) 2+ mg/dl (NEGATIVE); UR UROBILINOGEN (Dip) NEGATIVE (NEGATIVE); UR WBC 50 /HPF (0-5)
[2018-08-11] MEDS: LIDOCAINE 1% (MPF) 5 ML VIAL SC (13:20)
[2018-08-11] MEDS ORDERED: IPRATROPIUM (NEB) 0.5 MG/2.5 ML AMP HHN (14:00)
[2018-08-11] MEDS: NORepinephrine 8MG/250 ML (PMX 250 ML IV (14:40)
[2018-08-11] MEDS: ACETAMINOPHEN 325 MG TAB PO ×2 (15:20→21:42)
[2018-08-11] MEDS: traMADol 50 MG TAB PO (15:36)
[2018-08-11] MEDS ORDERED: NORepinephrine 8MG/250 ML (PMX 250 ML IV (18:30)
[2018-08-11] MEDS: SOD CHLORIDE 0.9% 500 ML IV (22:24)
[2018-08-11] MEDS: PHENYLephrine 20MG IN 250 ML 250 ML IV (22:49)
[2018-08-11 22:55] LABS: LACTIC ACID 1.1 mmol/L (0.5-2.0)
[2018-08-12] MEDS: LEVALBUTEROL (NEB) 1.25 MG/0.5 ML AMP HHN ×6 (01:27→20:25)
[2018-08-12] MEDS: ACETYLCYSTEINE 20% 4 ML VIAL NEB ×4 (01:27→20:25)
[2018-08-12] MEDS: IPRATROPIUM (NEB) 0.5 MG/2.5 ML AMP HHN ×6 (01:27→20:25)
[2018-08-12] MEDS: METOCLOPRAMIDE 5 MG TAB PO ×4 (02:59→21:00)
[2018-08-12] MEDS: PHENYLephrine 20MG IN 250 ML 250 ML IV ×3 (03:52→13:36)
[2018-08-12 04:51] LABS: WHITE BLOOD COUNT 24.9 10^3/ul (4.8-10.8)
[2018-08-12 04:51] LABS: ABNORMAL IP MESSAGE 1; HEMATOCRIT 24.5 % (42.0-52.0); HEMOGLOBIN 7.5 g/dl (14.0-18.0); MEAN CORPUSCULAR HEMOGLOBIN 24.9 pg (29.0-33.0); MEAN CORPUSCULAR HGB CONC 30.6 g/dl (32.0-37.0); MEAN CORPUSCULAR VOLUME 81.4 fl (82.0-101.0); MEAN PLATELET VOLUME 9.1 fl (7.4-10.4); PLATELET COUNT 434 10^3/UL (140-415); POSITIVE DIFF @See below; RED BLOOD COUNT 3.01 10^6/ul (4.70-6.10)
[2018-08-12 04:55] LABS: ADD MAN DIFF? YES
[2018-08-12 05:12] LABS: ALBUMIN 2.9 g/dl (3.3-4.9); ANION GAP 17 (5-13); BLOOD UREA NITROGEN 58 mg/dl (7-20); CARBON DIOXIDE 21 mmol/L (21-31); CHLORIDE 93 mmol/L (97-110); GLUCOSE 87 mg/dl (70-220); MAGNESIUM 1.9 mg/dl (1.7-2.5); PHOSPHORUS 5.9 mg/dl (2.5-4.9); POTASSIUM 4.8 mmol/L (3.5-5.1); SODIUM 131 mmol/L (135-144)
[2018-08-12 05:20] LABS: CREATININE 4.45 mg/dl (0.61-1.24); Estimated GFR 15 mL/min (>60)
[2018-08-12 07:11] LABS: ANISOCYTOSIS 2+ (0-0); BAND NEUTROPHILS #M 1.7 10^3/ul (0.0-0.6); BAND NEUTROPHILS % (M) 7 % (0-4); LYMPHOCYTES #M 0.2 10^3/ul (0.8-2.9); LYMPHOCYTES % (M) 1 % (15-51); MICROCYTOSIS 2+ (0-0); MONOCYTE #M 2.2 10^3/ul (0.3-0.9); MONOCYTES % (M) 9 % (0-11); PLATELET ESTIMATE INCREASED; POLYCHROMASIA 3+ (0-0); SEG NEUT #M 21.1 10^3/ul (1.6-7.5); SEGMENTED NEUTROPHILS (M) % 83 % (39-77); SMUDGE%M 1 % (0-0)
[2018-08-12] MEDS: SEVELAMER CARBONATE 800 MG TABLET PO ×3 (07:35→17:16)
[2018-08-12] MEDS: POLYETHYLENE GLYCOL 17 GM PACKET PO (09:00)
[2018-08-12] MEDS: AMLODIPINE 10 MG TAB PO (09:00)
[2018-08-12] MEDS: SENNA/DOCUSATE NA (8.6MG/50MG) TAB PO ×2 (09:00→21:00)
[2018-08-12 09:29] LABS: LACTIC ACID 1.3 mmol/L (0.5-2.0)
[2018-08-12] MEDS: FAMOTIDINE 20 MG TAB PO (09:37)
[2018-08-12] MEDS: MULTIVIT/CA CARB/B CMPLX/FA TAB PO (09:37)
[2018-08-12] MEDS: GABAPENTIN 100 MG CAP PO ×3 (09:38→21:00)
[2018-08-12] MEDS: PYRIDOXINE 50 MG TAB PO (09:38)
[2018-08-12] MEDS: BALSAM PERU/CASTOR OIL 60 GM TUBE TOP ×2 (09:38→21:01)
[2018-08-12] MEDS: HEPARIN 5,000 UNIT/1 ML VIAL SC ×2 (09:39→21:04)
[2018-08-12 09:46] LABS: AMMONIA < 9 umol/l (9-30)
[2018-08-12] MEDS: HEPARIN 1000 UNITS/ML 10 ML INJ CATHETER (11:13)
[2018-08-12] MEDS: FOLIC ACID 1 MG TAB PO (11:26)
[2018-08-12] MEDS: CEFEPIME 1GM/50 ML (PMX) 50 ML IVPB (11:27)
[2018-08-12] MEDS: metroNIDAZOLE 500 MG/NS (PMX) 100 ML IVPB ×2 (14:01→22:07)
[2018-08-12] MEDS: PHENYLephrine 80 MG in DEXTROSE 5% 242 ML IV (17:33)
[2018-08-13] MEDS: LEVALBUTEROL (NEB) 1.25 MG/0.5 ML AMP HHN ×6 (01:50→20:33)
[2018-08-13] MEDS: IPRATROPIUM (NEB) 0.5 MG/2.5 ML AMP HHN ×6 (01:50→20:33)
[2018-08-13] MEDS: ACETYLCYSTEINE 20% 4 ML VIAL NEB ×4 (01:51→20:33)
[2018-08-13] MEDS: METOCLOPRAMIDE 5 MG TAB PO ×4 (03:01→20:19)
[2018-08-13] MEDS: metroNIDAZOLE 500 MG/NS (PMX) 100 ML IVPB ×3 (05:36→21:27)
[2018-08-13 05:56] LABS: WHITE BLOOD COUNT 28.6 10^3/ul (4.8-10.8)
[2018-08-13 05:56] LABS: ABNORMAL IP MESSAGE 1; HEMATOCRIT 22.2 % (42.0-52.0); MEAN CORPUSCULAR HEMOGLOBIN 25.2 pg (29.0-33.0); MEAN CORPUSCULAR HGB CONC 30.6 g/dl (32.0-37.0); MEAN CORPUSCULAR VOLUME 82.2 fl (82.0-101.0); MEAN PLATELET VOLUME 9.1 fl (7.4-10.4); PLATELET COUNT 384 10^3/UL (140-415); POSITIVE DIFF @See below; RED CELL DISTRIBUTION WIDTH 17.9 % (11.5-14.5)
[2018-08-13 06:08] LABS: ADD MAN DIFF? YES; HEMOGLOBIN 6.8 g/dl (14.0-18.0)
[2018-08-13 06:16] LABS: VANCOMYCIN,RANDOM 11.7 ug/ml
[2018-08-13 06:16] LABS: ANION GAP 16 (5-13); BLOOD UREA NITROGEN 53 mg/dl (7-20); CARBON DIOXIDE 24 mmol/L (21-31); CHLORIDE 96 mmol/L (97-110); GLUCOSE 90 mg/dl (70-220); MAGNESIUM 2.2 mg/dl (1.7-2.5); PHOSPHORUS 5.6 mg/dl (2.5-4.9); POTASSIUM 4.4 mmol/L (3.5-5.1); SODIUM 136 mmol/L (135-144)
[2018-08-13 06:21] LABS: Estimated GFR 14 mL/min (>60)
[2018-08-13 06:22] LABS: CREATININE 4.67 mg/dl (0.61-1.24)
[2018-08-13] MEDS: SEVELAMER CARBONATE 800 MG TABLET PO ×3 (08:29→18:10)
[2018-08-13 08:53] LABS: ANISOCYTOSIS 1+ (0-0); BAND NEUTROPHILS #M 1.7 10^3/ul (0.0-0.6); BAND NEUTROPHILS % (M) 6 % (0-4); GIANT THROMBO% (M) 2 % (0-0); LYMPHOCYTES #M 1.4 10^3/ul (0.8-2.9); LYMPHOCYTES % (M) 5 % (15-51); MICROCYTOSIS 1+ (0-0); MONOCYTE #M 2.5 10^3/ul (0.3-0.9); MONOCYTES % (M) 9 % (0-11); PLASMA CELLS #M 0.2 10^3/ul (0.0-0.0); PLASMAC%(M) 1 % (0); PLATELET ESTIMATE NORMAL; POLYCHROMASIA 1+ (0-0); PROMYELOCYTES #M 0.2 10^3/ul (0-0); PROMYELOCYTES % (M) 1 % (0-0); SEG NEUT #M 22.8 10^3/ul (1.6-7.5); SEGMENTED NEUTROPHILS (M) % 78 % (39-77); SMUDGE%M 3 % (0-0); TOXIC GRANULATION 1+ (0-0)
[2018-08-13] MEDS: AMLODIPINE 10 MG TAB PO (09:00)
[2018-08-13] MEDS: HEPARIN 5,000 UNIT/1 ML VIAL SC ×2 (09:00→20:29)
[2018-08-13 09:10] LABS: AADO2 Arterial 117.7 mmHg (7.0-24.0); Allen Test ACCEPTAB; Arterial Base Excess -2.3 mmol/L (-3.0-3); Arterial Blood Gas Oxygen Sat 93.5 mmHG (95.0-98.0); Arterial COHb 0.6 % (0.0-3.0); Arterial Fraction of Oxyhgb 92.7 % (93.0-99.0); Arterial HCO3 22.5 mmol/L (22.0-26.0); Arterial MetHb 0.3 % (0.0-1.5); Arterial pCO2 38.3 mmhg (35-45); MODE NASAL CANNULA; Site Left Radial
[2018-08-13] MEDS: predniSONE 20 MG TAB PO (09:45)
[2018-08-13] MEDS: CEFEPIME 1GM/50 ML (PMX) 50 ML IVPB (09:45)
[2018-08-13] MEDS: MULTIVIT/CA CARB/B CMPLX/FA TAB PO (09:45)
[2018-08-13] MEDS: SENNA/DOCUSATE NA (8.6MG/50MG) TAB PO ×2 (09:45→20:17)
[2018-08-13] MEDS: FAMOTIDINE 20 MG TAB PO (09:45)
[2018-08-13] MEDS: FOLIC ACID 1 MG TAB PO (09:46)
[2018-08-13] MEDS: POLYETHYLENE GLYCOL 17 GM PACKET PO (09:46)
[2018-08-13] MEDS: PYRIDOXINE 50 MG TAB PO (09:46)
[2018-08-13] MEDS: GABAPENTIN 100 MG CAP PO ×3 (09:46→20:19)
[2018-08-13 09:47] LABS: IRON < 10 ug/dl (35-150)
[2018-08-13] MEDS: BALSAM PERU/CASTOR OIL 60 GM TUBE TOP ×2 (09:49→20:20)
[2018-08-13 09:54] LABS: TOTAL IRON BINDING CAPACITY 124 ug/dl (241-421)
[2018-08-13] MEDS: MEROPENEM 500MG/50 ML (PMX) 50 ML IVPB ×2 (11:16→20:20)
[2018-08-13] MEDS: SOD FERRIC GLUC COMPLX 125 MG in SOD CHLORIDE 0.9% 100 ML IVPB (14:07)
[2018-08-13] MEDS: VANCOMYCIN HCL 1.5 GM in SOD CHLORIDE 0.9% 250 ML IVPB (14:49)
[2018-08-13] MEDS: EPOETIN ALFA-EPBX (NON-ESRD 10,000 UNIT/ML VIAL SC (18:13)
[2018-08-13] MEDS: PHENYLephrine 80 MG in DEXTROSE 5% 242 ML IV (21:30)
[2018-08-13 23:03] LABS: IMMEDIATE SPIN CROSSMATCH 1 2
[2018-08-14] MEDS: ACETYLCYSTEINE 20% 4 ML VIAL NEB (01:04)
[2018-08-14] MEDS: LEVALBUTEROL (NEB) 1.25 MG/0.5 ML AMP HHN ×6 (01:04→19:58)
[2018-08-14] MEDS: IPRATROPIUM (NEB) 0.5 MG/2.5 ML AMP HHN ×6 (01:04→19:58)
[2018-08-14] MEDS: METOCLOPRAMIDE 5 MG TAB PO ×4 (02:42→21:57)
[2018-08-14] MEDS: traMADol 50 MG TAB PO (03:29)
[2018-08-14] MEDS: metroNIDAZOLE 500 MG/NS (PMX) 100 ML IVPB ×3 (05:38→21:57)
[2018-08-14 06:13] LABS: WHITE BLOOD COUNT 30.3 10^3/ul (4.8-10.8)
[2018-08-14 06:13] LABS: ABNORMAL IP MESSAGE 1; HEMATOCRIT 24.6 % (42.0-52.0); HEMOGLOBIN 7.6 g/dl (14.0-18.0); MEAN CORPUSCULAR HEMOGLOBIN 25.6 pg (29.0-33.0); MEAN CORPUSCULAR HGB CONC 30.9 g/dl (32.0-37.0); MEAN CORPUSCULAR VOLUME 82.8 fl (82.0-101.0); MEAN PLATELET VOLUME 8.9 fl (7.4-10.4); PLATELET COUNT 351 10^3/UL (140-415); POSITIVE DIFF @See below; RED BLOOD COUNT 2.97 10^6/ul (4.70-6.10); RED CELL DISTRIBUTION WIDTH 17.2 % (11.5-14.5)
[2018-08-14 06:22] LABS: ADD MAN DIFF? YES
[2018-08-14 06:28] LABS: ANION GAP 15 (5-13); BLOOD UREA NITROGEN 69 mg/dl (7-20); CALCIUM 7.6 mg/dl (8.4-10.2); CARBON DIOXIDE 21 mmol/L (21-31); CHLORIDE 99 mmol/L (97-110); GLUCOSE 81 mg/dl (70-220); POTASSIUM 4.3 mmol/L (3.5-5.1); SODIUM 135 mmol/L (135-144)
[2018-08-14 06:34] LABS: Estimated GFR 14 mL/min (>60)
[2018-08-14 06:51] LABS: CREATININE 4.76 mg/dl (0.61-1.24)
[2018-08-14 07:29] LABS: ANISOCYTOSIS 1+ (0-0); BAND NEUTROPHILS #M 8.4 10^3/ul (0.0-0.6); BAND NEUTROPHILS % (M) 28 % (0-4); HYPOCHROMASIA 1+ (0-0); LYMPHOCYTES #M 1.2 10^3/ul (0.8-2.9); LYMPHOCYTES % (M) 4 % (15-51); METAMYELOCYTES #M 0.3 10^3/ul (0.0-0.0); METAMYELOCYTES %M 1 % (0-0); MICROCYTOSIS 1+ (0-0); MONOCYTE #M 1.8 10^3/ul (0.3-0.9); MONOCYTES % (M) 6 % (0-11); MYELOCYTES #M 0.3 10^3/ul (0.0-0.0); MYELOCYTES % (M) 1 % (0-0); OVALOCYTES 1+ (0-0); PLATELET ESTIMATE NORMAL; POIKILOCYTOSIS 2+ (0-0); POLYCHROMASIA 1+ (0-0); SEG NEUT #M 20.7 10^3/ul (1.6-7.5); SEGMENTED NEUTROPHILS (M) % 60 % (39-77); SMUDGE%M 4 % (0-0); SPHEROCYTES 1+ (0-0)
[2018-08-14] MEDS: SEVELAMER CARBONATE 800 MG TABLET PO ×3 (08:08→17:15)
[2018-08-14] MEDS: predniSONE 20 MG TAB PO (08:18)
[2018-08-14] MEDS: FAMOTIDINE 20 MG TAB PO (08:18)
[2018-08-14] MEDS: GABAPENTIN 100 MG CAP PO ×3 (08:18→21:57)
[2018-08-14] MEDS: SENNA/DOCUSATE NA (8.6MG/50MG) TAB PO ×2 (08:18→21:57)
[2018-08-14] MEDS: POLYETHYLENE GLYCOL 17 GM PACKET PO (08:18)
[2018-08-14] MEDS: MEROPENEM 500MG/50 ML (PMX) 50 ML IVPB ×2 (08:18→20:01)
[2018-08-14] MEDS: BALSAM PERU/CASTOR OIL 60 GM TUBE TOP ×2 (08:19→21:58)
[2018-08-14] MEDS: FOLIC ACID 1 MG TAB PO (08:19)
[2018-08-14] MEDS: MULTIVIT/CA CARB/B CMPLX/FA TAB PO (08:19)
[2018-08-14] MEDS: PYRIDOXINE 50 MG TAB PO (08:19)
[2018-08-14] MEDS: AMLODIPINE 10 MG TAB PO (08:20)
[2018-08-14] MEDS: HEPARIN 5,000 UNIT/1 ML VIAL SC ×2 (08:26→22:03)
[2018-08-14] MEDS: HEPARIN 1000 UNITS/ML 10 ML INJ CATHETER (11:50)
[2018-08-14] MEDS: SOD FERRIC GLUC COMPLX 125 MG in SOD CHLORIDE 0.9% 100 ML IVPB (12:37)
[2018-08-14] MEDS ORDERED: LABETALOL HCL 20MG INJ (14:11)
[2018-08-14] MEDS: LABETALOL HCL 20MG INJ IV (14:43)
[2018-08-14] MEDS: CASPOFUNGIN 70 MG in SOD CHLORIDE 0.9% 250 ML IVPB (16:32)
[2018-08-14] MEDS: ACETAMINOPHEN 325 MG TAB PO (21:57)
[2018-08-14] MEDS: LORAZEPAM 0.5 MG TAB PO (21:57)
[2018-08-14] MEDS: PHENYLephrine 80 MG in DEXTROSE 5% 242 ML IV (22:07)
[2018-08-15] MEDS: LEVALBUTEROL (NEB) 1.25 MG/0.5 ML AMP HHN ×6 (00:09→20:13)
[2018-08-15] MEDS: IPRATROPIUM (NEB) 0.5 MG/2.5 ML AMP HHN ×6 (00:09→20:13)
[2018-08-15] MEDS: METOCLOPRAMIDE 5 MG TAB PO ×3 (02:14→15:41)
[2018-08-15] MEDS: traMADol 50 MG TAB PO (04:50)
[2018-08-15] MEDS: metroNIDAZOLE 500 MG/NS (PMX) 100 ML IVPB ×3 (05:10→20:54)
[2018-08-15 09:15] LABS: ABNORMAL IP MESSAGE 1; HEMOGLOBIN 7.7 g/dl (14.0-18.0); MEAN CORPUSCULAR HEMOGLOBIN 25.2 pg (29.0-33.0); MEAN CORPUSCULAR HGB CONC 29.6 g/dl (32.0-37.0); MEAN CORPUSCULAR VOLUME 85.2 fl (82.0-101.0); MEAN PLATELET VOLUME 8.9 fl (7.4-10.4); PLATELET COUNT 428 10^3/UL (140-415); POSITIVE DIFF @See below; RED BLOOD COUNT 3.05 10^6/ul (4.70-6.10); RED CELL DISTRIBUTION WIDTH 17.5 % (11.5-14.5)
[2018-08-15 09:15] LABS: WHITE BLOOD COUNT 34.6 10^3/ul (4.8-10.8)
[2018-08-15 09:21] LABS: ADD MAN DIFF? YES
[2018-08-15] MEDS: FAMOTIDINE 20 MG TAB PO (09:50)
[2018-08-15] MEDS: MULTIVIT/CA CARB/B CMPLX/FA TAB PO (09:50)
[2018-08-15] MEDS: MEROPENEM 500MG/50 ML (PMX) 50 ML IVPB ×2 (09:50→20:54)
[2018-08-15] MEDS: POLYETHYLENE GLYCOL 17 GM PACKET PO (09:50)
[2018-08-15] MEDS: FOLIC ACID 1 MG TAB PO (09:50)
[2018-08-15] MEDS: SEVELAMER CARBONATE 800 MG TABLET PO ×3 (09:51→17:35)
[2018-08-15] MEDS: SENNA/DOCUSATE NA (8.6MG/50MG) TAB PO (09:51)
[2018-08-15] MEDS: predniSONE 20 MG TAB PO (09:52)
[2018-08-15] MEDS: PYRIDOXINE 50 MG TAB PO (09:52)
[2018-08-15] MEDS: GABAPENTIN 100 MG CAP PO ×2 (09:52→12:57)
[2018-08-15] MEDS: BALSAM PERU/CASTOR OIL 60 GM TUBE TOP ×2 (09:53→20:58)
[2018-08-15] MEDS: AMLODIPINE 10 MG TAB PO (09:55)
[2018-08-15 10:00] LABS: ALANINE AMINOTRANSFERASE 30 IU/L (13-69); ALBUMIN 2.8 g/dl (3.3-4.9); ALBUMIN/GLOBULIN RATIO 0.82; ALKALINE PHOSPHATASE 144 IU/L (42-121); ANION GAP 14 (5-13); ASPARTATE AMINO TRANSFERASE 40 IU/L (15-46); BILIRUBIN,INDIRECT 0.2 mg/dl (0-1.1); BILIRUBIN,TOTAL 0.2 mg/dl (0.2-1.3); BLOOD UREA NITROGEN 55 mg/dl (7-20); CALCIUM 7.5 mg/dl (8.4-10.2); CARBON DIOXIDE 21 mmol/L (21-31); CHLORIDE 98 mmol/L (97-110); GLUCOSE 213 mg/dl (70-220); MAGNESIUM 2.2 mg/dl (1.7-2.5); POTASSIUM 3.4 mmol/L (3.5-5.1); SODIUM 133 mmol/L (135-144); TOTAL PROTEIN 6.2 g/dl (6.1-8.1)
[2018-08-15 10:12] LABS: CREATININE 3.48 mg/dl (0.61-1.24); Estimated GFR 20 mL/min (>60)
[2018-08-15] MEDS: HEPARIN 5,000 UNIT/1 ML VIAL SC ×2 (10:15→21:10)
[2018-08-15 10:38] LABS: ANISOCYTOSIS 2+ (0-0); BAND NEUTROPHILS #M 0.6 10^3/ul (0.0-0.6); BAND NEUTROPHILS % (M) 2 % (0-4); ELLIPTO 1+ (0-0); HYPOCHROMASIA 2+ (0-0); LYMPHOCYTES #M 1.3 10^3/ul (0.8-2.9); LYMPHOCYTES % (M) 4 % (15-51); METAMYELOCYTES #M 4.1 10^3/ul (0.0-0.0); METAMYELOCYTES %M 12 % (0-0); MICROCYTOSIS 2+ (0-0); MYELOCYTES #M 0.3 10^3/ul (0.0-0.0); MYELOCYTES % (M) 1 % (0-0); PLATELET ESTIMATE NORMAL; POLYCHROMASIA 3+ (0-0); SEG NEUT #M 28.2 10^3/ul (1.6-7.5); SEGMENTED NEUTROPHILS (M) % 81 % (39-77); SMUDGE%M 2 % (0-0); SPHEROCYTES 1+ (0-0); TARGET CELLS 1+ (0-0)
[2018-08-15] MEDS: IOHEXOL 14.3 MG(I)/ML (ADULT) BTL PO (12:00)
[2018-08-15] MEDS: ACETAMINOPHEN 325 MG TAB PO ×2 (12:58→21:12)
[2018-08-15] MEDS: SOD FERRIC GLUC COMPLX 125 MG in SOD CHLORIDE 0.9% 100 ML IVPB (13:15)
[2018-08-15] MEDS: PHENYLephrine 80 MG in DEXTROSE 5% 242 ML IV (14:20)
[2018-08-15] MEDS: CASPOFUNGIN 50 MG in SOD CHLORIDE 0.9% 250 ML IVPB (15:42)
[2018-08-15] MEDS: EPOETIN ALFA-EPBX (NON-ESRD 10,000 UNIT/ML VIAL SC (18:07)
[2018-08-15 19:01] LABS: ADD UMIC YES; UR AMORPHOUS CRYSTAL MANY /HPF (NONE SEEN); UR ASCORBIC ACID NEGATIVE (NEGATIVE); UR BACTERIA FEW /HPF (NONE SEEN); UR BILIRUBIN (Dip) NEGATIVE (NEGATIVE); UR BLOOD (Dip) 2+ mg/dL (NEGATIVE); UR CLARITY CLOUDY (CLEAR); UR COLOR AMBER (YELLOW); UR GLUCOSE (Dip) NEGATIVE (NEGATIVE); UR HYALINE CAST FEW /HPF (NONE SEEN); UR KETONES (Dip) NEGATIVE (NEGATIVE); UR LEUKOCYTE ESTERASE (Dip) TRACE Leu/ul (NEGATIVE); UR NITRITE (Dip) NEGATIVE (NEGATIVE); UR RBC 11 /HPF (0-5); UR TOTAL PROTEIN (Dip) 2+ mg/dl (NEGATIVE); UR UROBILINOGEN (Dip) NEGATIVE (NEGATIVE); UR WBC 27 /HPF (0-5)
[2018-08-15] MEDS: SCOPOLAMINE 1.5 MG PATCH TRANSDERM (20:54)
[2018-08-15 21:06] LABS: AADO2 Arterial 527.7 mmHg (7.0-24.0); Allen Test ACCEPTAB; Arterial Base Excess 0 mmol/L (-3.0-3); Arterial Blood Gas Oxygen Sat 94.2 mmHG (95.0-98.0); Arterial COHb 0.3 % (0.0-3.0); Arterial Fraction of Oxyhgb 93.7 % (93.0-99.0); Arterial HCO3 24.7 mmol/L (22.0-26.0); Arterial MetHb 0.2 % (0.0-1.5); Arterial pCO2 40.4 mmhg (35-45); MODE HFNC; Site Right Radial
[2018-08-16] MEDS: LEVALBUTEROL (NEB) 1.25 MG/0.5 ML AMP HHN ×6 (00:05→21:16)
[2018-08-16] MEDS: IPRATROPIUM (NEB) 0.5 MG/2.5 ML AMP HHN ×6 (00:05→21:15)
[2018-08-16] MEDS: POTASSIUM CHLORIDE 20 MEQ POWDER FOR ORAL SOLN PO (00:13)
[2018-08-16] MEDS: LOPERAMIDE 2 MG CAP PO (00:13)
[2018-08-16] MEDS: GABAPENTIN 100 MG CAP PO ×4 (00:13→20:58)
[2018-08-16] MEDS: LACTOBACILLUS RHAMNOSUS CAP PO ×3 (00:14→20:58)
[2018-08-16] MEDS: METOCLOPRAMIDE 5 MG TAB PO ×4 (00:14→20:58)
[2018-08-16] MEDS: ALBUMIN HUMAN 25% 100 ML IV (02:51)
[2018-08-16] MEDS: PHENYLephrine 80 MG in DEXTROSE 5% 242 ML IV ×2 (05:11→16:48)
[2018-08-16] MEDS: ACETAMINOPHEN 325 MG TAB PO ×2 (05:17→12:46)
[2018-08-16] MEDS: metroNIDAZOLE 500 MG/NS (PMX) 100 ML IVPB (05:17)
[2018-08-16 05:46] LABS: WHITE BLOOD COUNT 41.8 10^3/ul (4.8-10.8)
[2018-08-16 05:46] LABS: ABNORMAL IP MESSAGE 1; HEMATOCRIT 28.4 % (42.0-52.0); HEMOGLOBIN 8.6 g/dl (14.0-18.0); MEAN CORPUSCULAR HEMOGLOBIN 25.6 pg (29.0-33.0); MEAN CORPUSCULAR HGB CONC 30.3 g/dl (32.0-37.0); MEAN CORPUSCULAR VOLUME 84.5 fl (82.0-101.0); MEAN PLATELET VOLUME 8.8 fl (7.4-10.4); PLATELET COUNT 503 10^3/UL (140-415); POSITIVE DIFF @See below; RED BLOOD COUNT 3.36 10^6/ul (4.70-6.10); RED CELL DISTRIBUTION WIDTH 17.6 % (11.5-14.5)
[2018-08-16] MEDS: HEPARIN 1000 UNITS/ML 10 ML INJ CATHETER (05:51)
[2018-08-16 05:57] LABS: ADD MAN DIFF? YES
[2018-08-16 06:07] LABS: PHOSPHORUS 2.7 mg/dl (2.5-4.9)
[2018-08-16 06:07] LABS: MAGNESIUM 2.1 mg/dl (1.7-2.5)
[2018-08-16 06:08] LABS: ALANINE AMINOTRANSFERASE 31 IU/L (13-69); ALBUMIN 3.3 g/dl (3.3-4.9); ALBUMIN/GLOBULIN RATIO 0.91; ALKALINE PHOSPHATASE 146 IU/L (42-121); ANION GAP 12 (5-13); ASPARTATE AMINO TRANSFERASE 51 IU/L (15-46); BILIRUBIN,INDIRECT 0.3 mg/dl (0-1.1); BILIRUBIN,TOTAL 0.3 mg/dl (0.2-1.3); BLOOD UREA NITROGEN 31 mg/dl (7-20); CALCIUM 8.3 mg/dl (8.4-10.2); CARBON DIOXIDE 30 mmol/L (21-31); CHLORIDE 98 mmol/L (97-110); CREATININE 2.28 mg/dl (0.61-1.24); Estimated GFR 32 mL/min (>60); GLUCOSE 94 mg/dl (70-220); POTASSIUM 3.2 mmol/L (3.5-5.1); SODIUM 140 mmol/L (135-144); TOTAL PROTEIN 6.9 g/dl (6.1-8.1)
[2018-08-16 06:12] LABS: VANCOMYCIN,RANDOM 7.2 ug/ml
[2018-08-16] MEDS: SEVELAMER CARBONATE 800 MG TABLET PO ×3 (07:35→17:35)
[2018-08-16] MEDS: PYRIDOXINE 50 MG TAB PO (09:00)
[2018-08-16] MEDS: MULTIVIT/CA CARB/B CMPLX/FA TAB PO (09:00)
[2018-08-16] MEDS: FAMOTIDINE 20 MG TAB PO (09:00)
[2018-08-16] MEDS: FOLIC ACID 1 MG TAB PO (09:00)
[2018-08-16] MEDS: BALSAM PERU/CASTOR OIL 60 GM TUBE TOP ×2 (09:00→20:58)
[2018-08-16] MEDS: MEROPENEM 500MG/50 ML (PMX) 50 ML IVPB ×2 (09:26→20:50)
[2018-08-16] MEDS: POTASSIUM CHLORIDE 100 ML IVPB (09:27)
[2018-08-16] MEDS: HEPARIN 5,000 UNIT/1 ML VIAL SC ×2 (09:33→20:57)
[2018-08-16 10:16] LABS: ANISOCYTOSIS 1+ (0-0); BAND NEUTROPHILS #M 3.3 10^3/ul (0.0-0.6); BAND NEUTROPHILS % (M) 8 % (0-4); BURR CELLS 1+ (0-0); LYMPHOCYTES #M 1.6 10^3/ul (0.8-2.9); LYMPHOCYTES % (M) 4 % (15-51); METAMYELOCYTES #M 0.8 10^3/ul (0.0-0.0); METAMYELOCYTES %M 2 % (0-0); MICROCYTOSIS 1+ (0-0); MONOCYTE #M 1.6 10^3/ul (0.3-0.9); MONOCYTES % (M) 4 % (0-11); MYELOCYTES #M 0.4 10^3/ul (0.0-0.0); MYELOCYTES % (M) 1 % (0-0); PLATELET ESTIMATE NORMAL; POIKILOCYTOSIS 1+ (0-0); POLYCHROMASIA 1+ (0-0); SEG NEUT #M 35.2 10^3/ul (1.6-7.5); SEGMENTED NEUTROPHILS (M) % 81 % (39-77); SMUDGE%M 6 % (0-0)
[2018-08-16] MEDS ORDERED: VANCOMYCIN HCL 1.5 GM in SOD CHLORIDE 0.9% 250 ML IVPB (12:00)
[2018-08-16] MEDS: SOD FERRIC GLUC COMPLX 125 MG in SOD CHLORIDE 0.9% 100 ML IVPB (12:41)
[2018-08-16] MEDS: TIGECYCLINE 100 MG in SOD CHLORIDE 0.9% 100 ML IVPB (12:45)
[2018-08-16] MEDS: CASPOFUNGIN 50 MG in SOD CHLORIDE 0.9% 250 ML IVPB (16:47)
[2018-08-16] MEDS: ACETAMINOPHEN 1000MG/100ML IV 100 ML IVPB (17:57)
[2018-08-16] MEDS: TIGECYCLINE 50 MG in SOD CHLORIDE 0.9% 100 ML IVPB (20:51)
[2018-08-17] MEDS: LEVALBUTEROL (NEB) 1.25 MG/0.5 ML AMP HHN ×6 (00:15→20:13)
[2018-08-17] MEDS: IPRATROPIUM (NEB) 0.5 MG/2.5 ML AMP HHN ×6 (00:15→20:13)
[2018-08-17] MEDS: PHENYLephrine 80 MG in DEXTROSE 5% 242 ML IV ×3 (00:31→16:24)
[2018-08-17] MEDS: ACETAMINOPHEN 1000MG/100ML IV 100 ML IVPB (03:40)
[2018-08-17] MEDS: METOCLOPRAMIDE 5 MG TAB PO ×3 (04:58→21:14)
[2018-08-17 06:42] LABS: ABNORMAL IP MESSAGE 1; HEMATOCRIT 26.8 % (42.0-52.0); HEMOGLOBIN 7.8 g/dl (14.0-18.0); MEAN CORPUSCULAR HEMOGLOBIN 25.4 pg (29.0-33.0); MEAN CORPUSCULAR HGB CONC 29.1 g/dl (32.0-37.0); MEAN CORPUSCULAR VOLUME 87.3 fl (82.0-101.0); MEAN PLATELET VOLUME 9.2 fl (7.4-10.4); NUCLEATED RED BLOOD CELLS% 0.1 /100WBC (0.0-0.0); PLATELET COUNT 471 10^3/UL (140-415); POSITIVE DIFF @See below; RED BLOOD COUNT 3.07 10^6/ul (4.70-6.10); RED CELL DISTRIBUTION WIDTH 17.7 % (11.5-14.5)
[2018-08-17 06:47] LABS: ADD MAN DIFF? YES
[2018-08-17 07:01] LABS: ALANINE AMINOTRANSFERASE 35 IU/L (13-69); ALBUMIN 2.6 g/dl (3.3-4.9); ALBUMIN/GLOBULIN RATIO 0.83; ALKALINE PHOSPHATASE 110 IU/L (42-121); ANION GAP 15 (5-13); ASPARTATE AMINO TRANSFERASE 45 IU/L (15-46); BILIRUBIN,INDIRECT 0.2 mg/dl (0-1.1); BILIRUBIN,TOTAL 0.2 mg/dl (0.2-1.3); BLOOD UREA NITROGEN 53 mg/dl (7-20); CALCIUM 7.2 mg/dl (8.4-10.2); CARBON DIOXIDE 27 mmol/L (21-31); CHLORIDE 98 mmol/L (97-110); CREATININE 3.78 mg/dl (0.61-1.24); Estimated GFR 18 mL/min (>60); GLUCOSE 87 mg/dl (70-220); SODIUM 140 mmol/L (135-144); TOTAL PROTEIN 5.7 g/dl (6.1-8.1)
[2018-08-17 07:04] LABS: INR 1.78; PROTIME 20.8 Sec (11.9-14.9); PT RATIO 1.6
[2018-08-17 07:09] LABS: PHOSPHORUS 4.3 mg/dl (2.5-4.9)
[2018-08-17] MEDS: SEVELAMER CARBONATE 800 MG TABLET PO ×3 (07:35→17:15)
[2018-08-17] MEDS: FOLIC ACID 1 MG TAB PO (09:00)
[2018-08-17] MEDS: PYRIDOXINE 50 MG TAB PO (09:00)
[2018-08-17] MEDS: LACTOBACILLUS RHAMNOSUS CAP PO ×2 (09:00→21:14)
[2018-08-17] MEDS: FAMOTIDINE 20 MG TAB PO (09:00)
[2018-08-17] MEDS: GABAPENTIN 100 MG CAP PO ×4 (09:00→21:13)
[2018-08-17] MEDS: TIGECYCLINE 50 MG in SOD CHLORIDE 0.9% 100 ML IVPB ×2 (09:00→22:04)
[2018-08-17] MEDS: MULTIVIT/CA CARB/B CMPLX/FA TAB PO (09:00)
[2018-08-17] MEDS: MEROPENEM 500MG/50 ML (PMX) 50 ML IVPB ×2 (09:09→21:11)
[2018-08-17] MEDS: BALSAM PERU/CASTOR OIL 60 GM TUBE TOP ×2 (09:11→21:17)
[2018-08-17 09:18] LABS: ANISOCYTOSIS 1+ (0-0); BAND NEUTROPHILS #M 2.4 10^3/ul (0.0-0.6); BAND NEUTROPHILS % (M) 6 % (0-4); GIANT THROMBO% (M) 1 % (0-0); LYMPHOCYTES #M 3.2 10^3/ul (0.8-2.9); LYMPHOCYTES % (M) 8 % (15-51); METAMYELOCYTES #M 0.4 10^3/ul (0.0-0.0); METAMYELOCYTES %M 1 % (0-0); MICROCYTOSIS 1+ (0-0); MONOCYTE #M 4.5 10^3/ul (0.3-0.9); MONOCYTES % (M) 11 % (0-11); MYELOCYTES #M 0.4 10^3/ul (0.0-0.0); MYELOCYTES % (M) 1 % (0-0); PLATELET ESTIMATE NORMAL; POLYCHROMASIA 1+ (0-0); SEG NEUT #M 30.9 10^3/ul (1.6-7.5); SEGMENTED NEUTROPHILS (M) % 73 % (39-77); SMUDGE%M 1 % (0-0)
[2018-08-17] MEDS: HEPARIN 5,000 UNIT/1 ML VIAL SC ×2 (09:27→21:23)
[2018-08-17] MEDS: morphine LIQ (10 MG/5 ML) CUP PO (12:34)
[2018-08-17] MEDS: SOD FERRIC GLUC COMPLX 125 MG in SOD CHLORIDE 0.9% 100 ML IVPB (13:07)
[2018-08-17] MEDS: POLYETHYLENE GLYCOL 17 GM PACKET PO (16:00)
[2018-08-17] MEDS: CASPOFUNGIN 50 MG in SOD CHLORIDE 0.9% 250 ML IVPB (16:19)
[2018-08-18] MEDS: IPRATROPIUM (NEB) 0.5 MG/2.5 ML AMP HHN ×7 (00:26→20:04)
[2018-08-18] MEDS: LEVALBUTEROL (NEB) 1.25 MG/0.5 ML AMP HHN ×6 (00:26→20:04)
[2018-08-18] MEDS: PHENYLephrine 80 MG in DEXTROSE 5% 242 ML IV ×4 (01:43→23:24)
[2018-08-18] MEDS: morphine LIQ (10 MG/5 ML) CUP PO ×3 (04:25→18:04)
[2018-08-18] MEDS: METOCLOPRAMIDE 5 MG TAB PO ×3 (05:21→21:15)
[2018-08-18 05:35] LABS: ABNORMAL IP MESSAGE 1; HEMATOCRIT 26.1 % (42.0-52.0); HEMOGLOBIN 7.6 g/dl (14.0-18.0); MEAN CORPUSCULAR HGB CONC 29.1 g/dl (32.0-37.0); MEAN CORPUSCULAR VOLUME 85.9 fl (82.0-101.0); MEAN PLATELET VOLUME 9.4 fl (7.4-10.4); NUCLEATED RED BLOOD CELLS% 0.1 /100WBC (0.0-0.0); PLATELET COUNT 496 10^3/UL (140-415); POSITIVE DIFF @See below; RED BLOOD COUNT 3.04 10^6/ul (4.70-6.10); RED CELL DISTRIBUTION WIDTH 17.8 % (11.5-14.5)
[2018-08-18 05:42] LABS: ADD MAN DIFF? YES
[2018-08-18 05:44] LABS: ANION GAP 12 (5-13); BLOOD UREA NITROGEN 71 mg/dl (7-20); CALCIUM 7.2 mg/dl (8.4-10.2); CARBON DIOXIDE 24 mmol/L (21-31); CHLORIDE 103 mmol/L (97-110); CREATININE 4.06 mg/dl (0.61-1.24); Estimated GFR 17 mL/min (>60); GLUCOSE 90 mg/dl (70-220); MAGNESIUM 2.2 mg/dl (1.7-2.5); PHOSPHORUS 5.5 mg/dl (2.5-4.9); POTASSIUM 3.8 mmol/L (3.5-5.1); SODIUM 139 mmol/L (135-144)
[2018-08-18] MEDS: SEVELAMER CARBONATE 800 MG TABLET PO ×3 (07:35→14:57)
[2018-08-18] MEDS: MEROPENEM 500MG/50 ML (PMX) 50 ML IVPB ×2 (08:23→20:46)
[2018-08-18] MEDS: FAMOTIDINE 20 MG TAB PO (08:31)
[2018-08-18] MEDS: FOLIC ACID 1 MG TAB PO (08:31)
[2018-08-18] MEDS: PYRIDOXINE 50 MG TAB PO (08:32)
[2018-08-18] MEDS: GABAPENTIN 100 MG CAP PO ×3 (08:32→20:46)
[2018-08-18] MEDS: LACTOBACILLUS RHAMNOSUS CAP PO ×2 (08:32→20:46)
[2018-08-18] MEDS: MULTIVIT/CA CARB/B CMPLX/FA TAB PO (08:32)
[2018-08-18 09:15] LABS: ANISOCYTOSIS 2+ (0-0); BAND NEUTROPHILS #M 3.2 10^3/ul (0.0-0.6); BAND NEUTROPHILS % (M) 7 % (0-4); GIANT THROMBO% (M) 1 % (0-0); HYPOCHROMASIA 2+ (0-0); LYMPHOCYTES #M 3.2 10^3/ul (0.8-2.9); LYMPHOCYTES % (M) 7 % (15-51); MICROCYTOSIS 2+ (0-0); MONOCYTE #M 1.3 10^3/ul (0.3-0.9); MONOCYTES % (M) 3 % (0-11); PLATELET ESTIMATE INCREASED; POLYCHROMASIA 1+ (0-0); PROMYELOCYTES #M 0.4 10^3/ul (0-0); PROMYELOCYTES % (M) 1 % (0-0); SEG NEUT #M 39.2 10^3/ul (1.6-7.5); SEGMENTED NEUTROPHILS (M) % 82 % (39-77)
[2018-08-18] MEDS: TIGECYCLINE 50 MG in SOD CHLORIDE 0.9% 100 ML IVPB (09:39)
[2018-08-18] MEDS: BALSAM PERU/CASTOR OIL 60 GM TUBE TOP ×2 (09:39→20:47)
[2018-08-18] MEDS: HEPARIN 5,000 UNIT/1 ML VIAL SC ×2 (09:44→20:53)
[2018-08-18] MEDS: HEPARIN 1000 UNITS/ML 10 ML INJ CATHETER (12:27)
[2018-08-18] MEDS ORDERED: VANCOMYCIN IV PER PHARMACY XX (15:00)
[2018-08-18] MEDS: metroNIDAZOLE 500 MG/NS (PMX) 100 ML IVPB ×2 (15:25→21:15)
[2018-08-18] MEDS: CASPOFUNGIN 50 MG in SOD CHLORIDE 0.9% 250 ML IVPB (15:25)
[2018-08-18] MEDS: EPOETIN ALFA-EPBX (NON-ESRD 10,000 UNIT/ML VIAL SC (16:22)
[2018-08-18] MEDS: VANCOMYCIN HCL 2 GM in SOD CHLORIDE 0.9% 500 ML IVPB (18:01)
[2018-08-18] MEDS: SCOPOLAMINE 1.5 MG PATCH TRANSDERM (20:48)
[2018-08-19] MEDS: morphine LIQ (10 MG/5 ML) CUP PO ×2 (03:40→20:59)
[2018-08-19] MEDS: LEVALBUTEROL (NEB) 1.25 MG/0.5 ML AMP HHN ×6 (04:02→20:47)
[2018-08-19] MEDS: IPRATROPIUM (NEB) 0.5 MG/2.5 ML AMP HHN ×6 (04:03→20:47)
[2018-08-19 05:35] LABS: ABNORMAL IP MESSAGE 1; HEMATOCRIT 23.7 % (42.0-52.0); HEMOGLOBIN 7.4 g/dl (14.0-18.0); MEAN CORPUSCULAR HEMOGLOBIN 25.8 pg (29.0-33.0); MEAN CORPUSCULAR HGB CONC 31.2 g/dl (32.0-37.0); MEAN CORPUSCULAR VOLUME 82.6 fl (82.0-101.0); MEAN PLATELET VOLUME 9.7 fl (7.4-10.4); PLATELET COUNT 460 10^3/UL (140-415); POSITIVE DIFF @See below; RED BLOOD COUNT 2.87 10^6/ul (4.70-6.10); RED CELL DISTRIBUTION WIDTH 17.5 % (11.5-14.5)
[2018-08-19 05:35] LABS: WHITE BLOOD COUNT 36.3 10^3/ul (4.8-10.8)
[2018-08-19] MEDS: metroNIDAZOLE 500 MG/NS (PMX) 100 ML IVPB ×3 (06:17→21:02)
[2018-08-19] MEDS: METOCLOPRAMIDE 5 MG TAB PO ×3 (06:17→21:02)
[2018-08-19 06:20] LABS: ANION GAP 13 (5-13); BLOOD UREA NITROGEN 56 mg/dl (7-20); CALCIUM 7.3 mg/dl (8.4-10.2); CARBON DIOXIDE 26 mmol/L (21-31); CHLORIDE 101 mmol/L (97-110); CREATININE 3.01 mg/dl (0.61-1.24); Estimated GFR 24 mL/min (>60); GLUCOSE 85 mg/dl (70-220); MAGNESIUM 2.1 mg/dl (1.7-2.5); PHOSPHORUS 4.2 mg/dl (2.5-4.9); POTASSIUM 3.6 mmol/L (3.5-5.1); SODIUM 140 mmol/L (135-144)
[2018-08-19 06:37] LABS: ADD MAN DIFF? YES
[2018-08-19] MEDS: SEVELAMER CARBONATE 800 MG TABLET PO ×3 (07:35→16:37)
[2018-08-19] MEDS: POLYETHYLENE GLYCOL 17 GM PACKET PO (08:12)
[2018-08-19] MEDS: LACTOBACILLUS RHAMNOSUS CAP PO ×2 (08:38→20:24)
[2018-08-19] MEDS: FAMOTIDINE 20 MG TAB PO (08:39)
[2018-08-19] MEDS: FOLIC ACID 1 MG TAB PO (08:39)
[2018-08-19] MEDS: MULTIVIT/CA CARB/B CMPLX/FA TAB PO (08:39)
[2018-08-19] MEDS: PYRIDOXINE 50 MG TAB PO (08:39)
[2018-08-19] MEDS: GABAPENTIN 100 MG CAP PO ×3 (08:39→20:24)
[2018-08-19] MEDS: MEROPENEM 500MG/50 ML (PMX) 50 ML IVPB ×2 (09:01→20:23)
[2018-08-19] MEDS: BALSAM PERU/CASTOR OIL 60 GM TUBE TOP ×2 (09:01→20:25)
[2018-08-19] MEDS: HEPARIN 5,000 UNIT/1 ML VIAL SC ×2 (09:11→20:40)
[2018-08-19 09:21] LABS: ANISOCYTOSIS 3+ (0-0); BAND NEUTROPHILS #M 3.2 10^3/ul (0.0-0.6); BAND NEUTROPHILS % (M) 9 % (0-4); HYPOCHROMASIA 1+ (0-0); LYMPHOCYTES #M 1.4 10^3/ul (0.8-2.9); LYMPHOCYTES % (M) 4 % (15-51); MICROCYTOSIS 3+ (0-0); MONOCYTE #M 0.7 10^3/ul (0.3-0.9); MONOCYTES % (M) 2 % (0-11); MYELOCYTES #M 0.3 10^3/ul (0.0-0.0); MYELOCYTES % (M) 1 % (0-0); OVALOCYTES 1+ (0-0); PLATELET ESTIMATE INCREASED; POLYCHROMASIA 3+ (0-0); SEG NEUT #M 31.7 10^3/ul (1.6-7.5); SEGMENTED NEUTROPHILS (M) % 84 % (39-77); SMUDGE%M 2 % (0-0); STOMATOCYTES 1+ (0-0)
[2018-08-19] MEDS: PHENYLephrine 80 MG in DEXTROSE 5% 242 ML IV (10:38)
[2018-08-19] MEDS: CASPOFUNGIN 50 MG in SOD CHLORIDE 0.9% 250 ML IVPB (16:37)
[2018-08-20] MEDS: PHENYLephrine 80 MG in DEXTROSE 5% 242 ML IV ×2 (01:07→12:12)
[2018-08-20] MEDS: LEVALBUTEROL (NEB) 1.25 MG/0.5 ML AMP HHN ×3 (01:19→08:48)
[2018-08-20] MEDS: IPRATROPIUM (NEB) 0.5 MG/2.5 ML AMP HHN ×3 (01:19→08:47)
[2018-08-20] MEDS: ACETAMINOPHEN 325 MG TAB PO (01:42)
[2018-08-20 02:40] LABS: AADO2 Arterial 377.7 mmHg (7.0-24.0); Allen Test ACCEPTAB; Arterial Base Excess -3.7 mmol/L (-3.0-3); Arterial COHb 0.3 % (0.0-3.0); Arterial Fraction of Oxyhgb 89.4 % (93.0-99.0); Arterial HCO3 22.8 mmol/L (22.0-26.0); Arterial MetHb 0.4 % (0.0-1.5); Arterial pCO2 50.2 mmhg (35-45); MODE HFNC; Site Left Radial
[2018-08-20] MEDS: NORepinephrine 8MG/250 ML (PMX 250 ML IV ×2 (02:43→08:47)
[2018-08-20] MEDS ORDERED: VANCOMYCIN IV PER PHARMACY XX (03:30)
[2018-08-20 04:06] LABS: ABNORMAL IP MESSAGE 1; ANION GAP 10 (5-13); BLOOD UREA NITROGEN 78 mg/dl (7-20); CALCIUM 6.6 mg/dl (8.4-10.2); CARBON DIOXIDE 23 mmol/L (21-31); CHLORIDE 105 mmol/L (97-110); CREATININE 4.36 mg/dl (0.61-1.24); Estimated GFR 15 mL/min (>60); GLUCOSE 199 mg/dl (70-220); HEMATOCRIT 16.7 % (42.0-52.0); MAGNESIUM 2.2 mg/dl (1.7-2.5); MEAN CORPUSCULAR HEMOGLOBIN 25.7 pg (29.0-33.0); MEAN CORPUSCULAR HGB CONC 28.7 g/dl (32.0-37.0); MEAN CORPUSCULAR VOLUME 89.3 fl (82.0-101.0); MEAN PLATELET VOLUME 10.2 fl (7.4-10.4); NUCLEATED RED BLOOD CELLS% 0.1 /100WBC (0.0-0.0); PHOSPHORUS 4.5 mg/dl (2.5-4.9); PLATELET COUNT 528 10^3/UL (140-415); POSITIVE DIFF @See below; POTASSIUM 4.4 mmol/L (3.5-5.1); RED BLOOD COUNT 1.87 10^6/ul (4.70-6.10); RED CELL DISTRIBUTION WIDTH 17.7 % (11.5-14.5); SODIUM 138 mmol/L (135-144)
[2018-08-20 04:06] LABS: WHITE BLOOD COUNT 51.9 10^3/ul (4.8-10.8)
[2018-08-20 04:11] LABS: LACTIC ACID 2.9 mmol/L (0.5-2.0)
[2018-08-20 04:33] LABS: ADD MAN DIFF? YES; HEMOGLOBIN 4.8 g/dl (14.0-18.0)
[2018-08-20] MEDS ORDERED: MIDAZOLAM (DRIP) 50 mg/50 mL 50 ML IV (05:00)
[2018-08-20] MEDS: PROPOFOL 100 ML IV (05:00)
[2018-08-20] MEDS: ALBUMIN HUMAN 25% 100 ML IV (05:48)
[2018-08-20] MEDS: metroNIDAZOLE 500 MG/NS (PMX) 100 ML IVPB (05:54)
[2018-08-20 05:57] LABS: WHITE BLOOD COUNT 54.6 10^3/ul (4.8-10.8)
[2018-08-20 05:57] LABS: AADO2 Arterial 487.5 mmHg (7.0-24.0); ABNORMAL IP MESSAGE 1; Allen Test ACCEPTAB; Arterial Base Excess -7.7 mmol/L (-3.0-3); Arterial Blood Gas Oxygen Sat 99.1 mmHG (95.0-98.0); Arterial COHb 0.1 % (0.0-3.0); Arterial Fraction of Oxyhgb 98.4 % (93.0-99.0); Arterial HCO3 17.5 mmol/L (22.0-26.0); Arterial MetHb 0.6 % (0.0-1.5); Arterial pCO2 33.4 mmhg (35-45); HEMATOCRIT 21.2 % (42.0-52.0); MEAN CORPUSCULAR HGB CONC 29.7 g/dl (32.0-37.0); MEAN CORPUSCULAR VOLUME 87.6 fl (82.0-101.0); MEAN PLATELET VOLUME 10.3 fl (7.4-10.4); MODE VENT - AC; NUCLEATED RED BLOOD CELLS% 0.1 /100WBC (0.0-0.0); PLATELET COUNT 647 10^3/UL (140-415); POSITIVE DIFF @See below; RED BLOOD COUNT 2.42 10^6/ul (4.70-6.10); RED CELL DISTRIBUTION WIDTH 17.9 % (11.5-14.5); Site Right Radial
[2018-08-20] MEDS: MIDAZOLAM (DRIP) 50 mg/50 mL 50 ML IV (05:57)
[2018-08-20] MEDS: METOCLOPRAMIDE 5 MG TAB PO (06:00)
[2018-08-20] MEDS: VASOPRESSIN 60 UNIT in DEXTROSE 5% 57 ML IV (06:02)
[2018-08-20] MEDS: ACETAMINOPHEN 1000MG/100ML IV 100 ML IVPB (06:04)
[2018-08-20 06:08] LABS: ALANINE AMINOTRANSFERASE 55 IU/L (13-69); ALBUMIN 2.6 g/dl (3.3-4.9); ALBUMIN/GLOBULIN RATIO 0.86; ALKALINE PHOSPHATASE 125 IU/L (42-121); ANION GAP 16 (5-13); ASPARTATE AMINO TRANSFERASE 174 IU/L (15-46); BILIRUBIN,INDIRECT 0.2 mg/dl (0-1.1); BILIRUBIN,TOTAL 0.2 mg/dl (0.2-1.3); BLOOD UREA NITROGEN 86 mg/dl (7-20); CALCIUM 6.9 mg/dl (8.4-10.2); CARBON DIOXIDE 21 mmol/L (21-31); CHLORIDE 106 mmol/L (97-110); GLUCOSE 111 mg/dl (70-220); POTASSIUM 5.4 mmol/L (3.5-5.1); SODIUM 143 mmol/L (135-144); TOTAL PROTEIN 5.6 g/dl (6.1-8.1)
[2018-08-20 06:10] LABS: VANCOMYCIN,RANDOM 16.6 ug/ml
[2018-08-20 06:15] LABS: CREATININE 4.34 mg/dl (0.61-1.24); Estimated GFR 15 mL/min (>60)
[2018-08-20 06:27] LABS: HEMOGLOBIN 6.3 g/dl (14.0-18.0)
[2018-08-20 06:28] LABS: ADD MAN DIFF? YES
[2018-08-20] MEDS ORDERED: ALTEPLASE (CATHFLO) 2 MG INJ CATHETER (06:30)
[2018-08-20] MEDS: DOPamine-D5W 1.6 MG/ML 250 ML IV ×3 (06:50→11:30)
[2018-08-20] MEDS ORDERED: CA CHLORIDE 10% 10 ML SYRINGE (07:00)
[2018-08-20] MEDS ORDERED: ATROPINE 1 MG/10 ML SYRINGE (07:00)
[2018-08-20] MEDS ORDERED: NA BICARBONATE 8.4% 50 ML SYG ×2 (07:00→10:52)
[2018-08-20] MEDS ORDERED: EPINEPHrine 0.1 MG/ML SYG ×2 (07:00)
[2018-08-20] MEDS: SEVELAMER CARBONATE 800 MG TABLET PO ×2 (07:35→11:30)
[2018-08-20 08:00] LABS: IMMEDIATE SPIN CROSSMATCH 1
[2018-08-20 08:50] LABS: WHITE BLOOD COUNT 64.8 10^3/ul (4.8-10.8)
[2018-08-20 08:50] LABS: ABNORMAL IP MESSAGE 1; HEMATOCRIT 28.5 % (42.0-52.0); HEMOGLOBIN 8.2 g/dl (14.0-18.0); MEAN CORPUSCULAR HEMOGLOBIN 28.2 pg (29.0-33.0); MEAN CORPUSCULAR HGB CONC 28.8 g/dl (32.0-37.0); MEAN CORPUSCULAR VOLUME 97.9 fl (82.0-101.0); MEAN PLATELET VOLUME 10.4 fl (7.4-10.4); NUCLEATED RED BLOOD CELLS% 1.2 /100WBC (0.0-0.0); PLATELET COUNT 351 10^3/UL (140-415); POSITIVE DIFF @See below; RED BLOOD COUNT 2.91 10^6/ul (4.70-6.10); RED CELL DISTRIBUTION WIDTH 16.2 % (11.5-14.5)
[2018-08-20 08:51] LABS: ADD MAN DIFF? YES
[2018-08-20 08:53] LABS: PLATELET COUNT 351 10^3/UL (140-415)
[2018-08-20] MEDS: EPINEPHrine 4 MG in DEXTROSE 5% 246 ML IV (08:59)
[2018-08-20] MEDS: IPRATROPIUM (HFA) 12.9 GM INHALER INH (09:00)
[2018-08-20] MEDS: MULTIVIT/CA CARB/B CMPLX/FA TAB PO (09:00)
[2018-08-20] MEDS: PYRIDOXINE 50 MG TAB PO (09:00)
[2018-08-20] MEDS: LACTOBACILLUS RHAMNOSUS CAP PO (09:00)
[2018-08-20] MEDS: FOLIC ACID 1 MG TAB PO (09:00)
[2018-08-20] MEDS: GABAPENTIN 100 MG CAP PO (09:00)
[2018-08-20] MEDS: BALSAM PERU/CASTOR OIL 60 GM TUBE TOP (09:00)
[2018-08-20 09:05] LABS: INR 4.33; PROTIME 41.4 Sec (11.9-14.9); PT RATIO 3.2
[2018-08-20 09:06] LABS: THROMBIN TIME 43.6 SEC (13.8-19.1)
[2018-08-20 09:08] LABS: PARTIAL THROMBOPLASTIN TIME 98.8 Sec (23.0-35.0)
[2018-08-20] MEDS: SOD CHLORIDE 0.9% 250 ML IV* (09:12)
[2018-08-20] MEDS ORDERED: NORepinephrine 32 MG in DEXTROSE 5% 218 ML IV ×2 (09:30→10:00)
[2018-08-20] MEDS: PANTOPRAZOLE IV 80 MG in SOD CHLORIDE 0.9% 100 ML IV (09:51)
[2018-08-20 10:22] LABS: IMMEDIATE SPIN CROSSMATCH 1 7
[2018-08-20 10:41] LABS: ANISOCYTOSIS 2+ (0-0); BAND NEUTROPHILS #M 2.1 10^3/ul (0.0-0.6); BAND NEUTROPHILS % (M) 4 % (0-4); BASOPHIL #M 0.5 10^3/ul (0.0-0.0); BASOPHILS % (M) 1 % (0-2); GIANT THROMBO% (M) 1 % (0-0); LYMPHOCYTES #M 2.7 10^3/ul (0.8-2.9); LYMPHOCYTES % (M) 5 % (15-51); MICROCYTOSIS 2+ (0-0); MONOCYTE #M 3.8 10^3/ul (0.3-0.9); MONOCYTES % (M) 7 % (0-11); PLATELET ESTIMATE INCREASED; POIKILOCYTOSIS 1+ (0-0); POLYCHROMASIA 3+ (0-0); SEG NEUT #M 46.5 10^3/ul (1.6-7.5); SEGMENTED NEUTROPHILS (M) % 83 % (39-77)
[2018-08-20 10:44] LABS: ANISOCYTOSIS 3+ (0-0); BAND NEUTROPHILS % (M) 2 % (0-4); BASOPHILS % (M) 2 % (0-2); GIANT THROMBO% (M) 3 % (0-0); LYMPHOCYTES % (M) 4 % (15-51); METAMYELOCYTES %M 2 % (0-0); MICROCYTOSIS 2+ (0-0); MONOCYTES % (M) 4 % (0-11); PLATELET ESTIMATE INCREASED; POLYCHROMASIA 3+ (0-0); SEG NEUT #M 45.2 10^3/ul (1.6-7.5); SEGMENTED NEUTROPHILS (M) % 86 % (39-77)
[2018-08-20 10:52] LABS: AADO2 Arterial 594.6 mmHg (7.0-24.0); Allen Test ACCEPTAB; Arterial Base Excess -23.4 mmol/L (-3.0-3); Arterial Blood Gas Oxygen Sat 93.3 mmHG (95.0-98.0); Arterial COHb 0.3 % (0.0-3.0); Arterial Fraction of Oxyhgb 92.6 % (93.0-99.0); Arterial MetHb 0.5 % (0.0-1.5); Arterial pCO2 31.2 mmhg (35-45); MODE VENT - AC; Site Left Radial
[2018-08-20] MEDS ORDERED: VANCOMYCIN 1 GM 250 ML IVPB (11:00)
[2018-08-20] MEDS: NA BICARBONATE 8.4% 50 ML SYG IV ×2 (11:26→11:57)
[2018-08-20] MEDS: MEROPENEM 500MG/50 ML (PMX) 50 ML IVPB (11:26)
[2018-08-20] MEDS ORDERED: SODIUM BICARBONATE (IV ADD) 150 MEQ in DEXTROSE 5% 1,000 ML IV (11:30)
[2018-08-20] MEDS ORDERED: SODIUM BICARBONATE IN D5W 1,000 ML IV (12:30)
[2018-08-20 12:36] LABS: ANISOCYTOSIS 2+ (0-0); BAND NEUTROPHILS #M 7.1 10^3/ul (0.0-0.6); BAND NEUTROPHILS % (M) 11 % (0-4); BURR CELLS 2+ (0-0); ERYTHROBLAST% (NRBC) (M) 1 % (0-0); GIANT THROMBO% (M) 6 % (0-0); LYMPHOCYTES #M 7.7 10^3/ul (0.8-2.9); LYMPHOCYTES % (M) 12 % (15-51); METAMYELOCYTES #M 2.5 10^3/ul (0.0-0.0); METAMYELOCYTES %M 4 % (0-0); MICROCYTOSIS 2+ (0-0); MONOCYTE #M 3.8 10^3/ul (0.3-0.9); MONOCYTES % (M) 6 % (0-11); MYELOCYTES #M 3.8 10^3/ul (0.0-0.0); MYELOCYTES % (M) 6 % (0-0); PLATELET ESTIMATE NORMAL; POIKILOCYTOSIS 3+ (0-0); POLYCHROMASIA 3+ (0-0); PROMYELOCYTES #M 1.9 10^3/ul (0-0); PROMYELOCYTES % (M) 3 % (0-0); REACTIVE LYMPHOCYTES #M 1.9 10^3/ul (0.0-0.0); REACTIVE LYMPHOCYTES% (M) 3 % (0-0); SEG NEUT #M 40.2 10^3/ul (1.6-7.5); SEGMENTED NEUTROPHILS (M) % 55 % (39-77); SMUDGE%M 19 % (0-0)
[2018-08-20] MEDS ORDERED: DESMOPRESSIN 20 MCG in SOD CHLORIDE 0.9% 50 ML IVPB (13:00)
[2018-08-20] MEDS ORDERED: LEVALBUTEROL (HFA) 15 GM INHALER INH (17:00)
== END 2018-08-20 12:35 | disposition expired | DRG 656 ==
LOC: REC 07:33 → 6WM 07-26 16:40 → MS1 08-04 18:24 → ICU 08-10 21:13
PROC: 0TT00ZZ Resection of Right Kidney, Open Approach (ICD-10-PCS; principal; 2018-07-22 13:30)
PROC: 0GT30ZZ Resection of Right Adrenal Gland, Open Approach (ICD-10-PCS; 2018-07-22 13:30)
PROC: 06B Lower Veins, Excision (ICD-10-PCS; 2018-07-22 13:30)
PROC: 0TB60ZZ Excision of Right Ureter, Open Approach (ICD-10-PCS; 2018-07-22 13:30)
PROC: 07BD0ZZ Excision of Aortic Lymphatic, Open Approach (ICD-10-PCS; 2018-07-22 13:30)
PROC: 06B90ZZ Excision of Right Renal Vein, Open Approach (ICD-10-PCS; 2018-07-22 13:30)
PROC: 0DN94ZZ Release Duodenum, Percutaneous Endoscopic Approach (ICD-10-PCS; 2018-07-22 13:30)
PROC: 0DNV4ZZ Release Mesentery, Percutaneous Endoscopic Approach (ICD-10-PCS; 2018-07-22 13:30)
PROC: 0DNF4ZZ Release Right Large Intestine, Percutaneous Endoscopic Approach (ICD-10-PCS; 2018-07-22 13:30)
PROC: 30233N1 Transfusion of Nonautologous Red Blood Cells into Peripheral Vein, Percutaneous Approach (ICD-10-PCS; 2018-07-22 13:30)
PROC: 5A1D70Z Performance of Urinary Filtration, Intermittent, Less than 6 Hours Per Day (ICD-10-PCS; 2018-07-22 14:23)
PROC: 02H633Z Insertion of Infusion Device into Right Atrium, Percutaneous Approach (ICD-10-PCS; 2018-07-22 14:23)
PROC: 30233K1 Transfusion of Nonautologous Frozen Plasma into Peripheral Vein, Percutaneous Approach (ICD-10-PCS; 2018-07-22 14:23)
PROC: 02PA33Z Removal of Infusion Device from Heart, Percutaneous Approach (ICD-10-PCS; 2018-07-22 14:23)
PROC: 02H633Z Insertion of Infusion Device into Right Atrium, Percutaneous Approach (ICD-10-PCS; 2018-07-22 14:23)
PROC: 0JH63XZ Insertion of Tunneled Vascular Access Device into Chest Subcutaneous Tissue and Fascia, Percutaneous Approach (ICD-10-PCS; 2018-07-22 14:23)
PROC: 02HV33Z Insertion of Infusion Device into Superior Vena Cava, Percutaneous Approach (ICD-10-PCS; 2018-07-22 14:23)
PROC: 0BH17EZ Insertion of Endotracheal Airway into Trachea, Via Natural or Artificial Opening (ICD-10-PCS; 2018-07-22 14:23)
PROC: 5A12012 Performance of Cardiac Output, Single, Manual (ICD-10-PCS; 2018-07-22 14:23)
PROC: 5A1935Z Respiratory Ventilation, Less than 24 Consecutive Hours (ICD-10-PCS; 2018-07-22 14:23)
DX: C64.1 Malignant neoplasm of right kidney, except renal pelvis (principal); N17.0 Acute kidney failure with tubular necrosis; R65.21 Severe sepsis with septic shock; A41.9 Sepsis, unspecified organism; G92 Toxic encephalopathy; J18.9 Pneumonia, unspecified organism; J96.91 Respiratory failure, unspecified with hypoxia; C79.89 Secondary malignant neoplasm of other specified sites; C77.2 Secondary and unspecified malignant neoplasm of intra-abdominal lymph nodes; D62 Acute posthemorrhagic anemia; E87.2 Acidosis; E87.1 Hypo-osmolality and hyponatremia; E66.2 Morbid (severe) obesity with alveolar hypoventilation; Z68.43 Body mass index [BMI] 50.0-59.9, adult; J98.11 Atelectasis; K56.7 Ileus, unspecified; K92.2 Gastrointestinal hemorrhage, unspecified; N30.00 Acute cystitis without hematuria; B96.89 Other specified bacterial agents as the cause of diseases classified elsewhere; D63.8 Anemia in other chronic diseases classified elsewhere; E87.5 Hyperkalemia; G62.89 Other specified polyneuropathies; I12.9 Hypertensive chronic kidney disease with stage 1 through stage 4 chronic kidney disease, or unspecified chronic kidney disease; I46.9 Cardiac arrest, cause unspecified; M19.072 Primary osteoarthritis, left ankle and foot; N18.3 Chronic kidney disease, stage 3 (moderate); R06.89 Other abnormalities of breathing; R57.1 Hypovolemic shock; R31.0 Gross hematuria; R19.7 Diarrhea, unspecified; R51 Headache; R00.0 Tachycardia, unspecified; R13.10 Dysphagia, unspecified; Z53.31 Laparoscopic surgical procedure converted to open procedure
CPT/HCPCS: 31500; 36430; 36558; 36569; 36600; 71045; 73630-LT; 74018; 74250; 76705; 76775; 76937; 80048; 80053; 80061; 80069; 80202; 81001; 81003; 82043; 82140; 82306; 82533; 82607; 82728; 82746; 82803; 82962; 83036; 83540; 83605; 83735; 84100; 84145; 84155; 84300; 84425; 84443; 84590; 85014; 85018; 85025; 85049; 85384; 85610; 85670; 85730; 86706; 86850; 86900; 86901; 86920; 87040-91; 87070; 87075; 87081; 87086; 87340; 88307; 88341; 88342; 90935; 92526; 92610; 92950; 93306; 93970; 93971; 94002; 94003; 94640; 94664; 94667; 94668; 94770; 97110; 97116; 97161; 97530